=== PATIENT | female | born 1980 | race African-American/Black ===

== ENCOUNTER 2016-08-13 20:15 | Emergency (ER) | payer OTHER ==
[~2016-08-13] VITALS: Ht 157.5 cm; Wt 69.1 kg
[~2016-08-13 20:15] MED LIST: ADVAIR 500/501 DISK; ADVAIR 500/501 DISK IH; ALBUTEROL2.5 MG/3 M; ALBUTEROL2.5 MG/3 M IH; ALPRAZOLAM0.25 M2 PO; ALPRAZOLAM0.5 MG PO; ALPRAZOLAM1 MG PO; ALPRAZOLAM2 MG PO; BACTRIM,SEPT1 TABLET PO; BENADRYL50 MG PO; BENTYL10 MG PO; BENTYL20 MG PO; BUSPAR10 MG PO; CLEOCIN300 MG PO; Cipro PO; DESYREL300 MG PO; DOXEPIN HCL100 MG PO; DULERA 100 MCG/13 GM IH; EPIPEN ADU0.3 MG/0.3 IM; ERGOCALCIF50000 UNIT PO; FLEXERIL10 MG PO; FUROSEMIDE40 MG; GUMMI BEAR MUL1 EACH PO; HYDROCODON-ACE1 EAC7 PO; IBUPROFEN800 MG PO; INCRUSE ELLI62.5 MCG IH; KEFLEX500 MG PO; LISINOPRIL-HCT1 EAC3 PO; LISINOPRIL20 MG PO; LORTAB 5-325 M1 EACH PO; MACROBID100 MG PO; MORPHINE SULFA100 M2; MORPHINE SULFAT15 MG PO; MS CONTIN100 MG PO; MS Contin PO; MUCINEX DM ER1 EACH PO; NAPROSYN500 MG PO; NAPROXEN500 MG PO; NEURONTIN300 MG PO; NORCO 5/3251 TABLET PO; NUCYNTA100 MG PO; NUCYNTA75 MG; OMEPRAZOLE20 MG PO; OXYCODONE HCL30 MG; PEPCID20 MG PO; PERCOCET 10-321 EACH PO; PERCOCET 5/31 TABLET PO; PHENERGAN12.5 M1 PO; PREDNISONE TAPER; PREDNISONE10 MG PO; PREDNISONE20 MG PO; PREDNISONE50 MG PO; PRINIVIL10 MG PO; PROAIR HFA8.5 GM IH; PROMETHAZINE HC25 M1; PYRIDIUM100 MG PO; PYRIDIUM200 MG PO; Phenergan PO; Proventil,Ventolin H IH; ROBITUSSIN AC,T10 ML PO; ROXICODONE30 MG PO; SERTRALINE HCL50 MG PO; TESSALON200 MG PO; TIZANIDINE HCL4 MG; TYLENOL EXTRA500 MG PO; VALIUM10 MG PO; VENTOLIN HFA18 GM; VENTOLIN HFA18 GM IH; VENTOLIN17 GM IH; VICODIN 5-3001 EACH PO; VICODIN,LORT1 TABLET PO; VITAMIN D2000 UNI1 PO; WELLBUTRIN XL150 MG PO; WELLBUTRIN XL300 MG PO; XANAX2 MG PO; ZANTAC150 MG PO; ZESTRIL,PRINIVI10 M1 PO; ZITHROMAX Z-PA250 MG PO; ZITHROMAX250 MG PO; ZOFRAN4 MG PO; ZOFRAN8 MG PO
[2016-08-13 20:43] LABS: MEAN PLAT.VOLUME 12.2 uM^3 (9.5-12.4); PLATELET COUNT 240 K/uL (156-360)
[2016-08-13 20:50] LABS: HEMATOCRIT 41.3 % (36.0-46.0); MCH 34.2 PG (29.0-34.0); MCHC 35.4 G/DL (30.0-36.0); MCV 96.7 FL (83-99); RBC DIS.WIDTH-CV 13.9 % (11.8-14.6); RBC DIS.WIDTH-SD 46.8 % (39-53); RED BLOOD COUNT 4.27 M/uL (3.80-5.20); WHITE BLOOD COUNT 8.4 K/uL (4.1-10.2)
[2016-08-13 20:51] LABS: CHLORIDE 103 mEq/L (99-109); POTASSIUM 3.2 mEq/L (3.7-5.4); SODIUM 139 mEq/L (136-147)
[2016-08-13 20:53] LABS: GLUCOSE 94 mg/dL (70-99)
[2016-08-13 20:55] LABS: ANION GAP 10 MEQ/L (2-14); TOTAL BILIRUBIN 0.9 mg/dL (0.0-1.0)
[2016-08-13 20:57] LABS: ALKALINE PHOSPHATASE 90 IU/L (3-129); GFR ESTIMATE (CALCULATED) > 59 mL/min/
[2016-08-13 20:58] LABS: UREA NITROGEN (BUN) 4 mg/dL (9-23)
[2016-08-13 21:00] LABS: LIPASE 41 U/L (1.0-51.0)
[2016-08-13 21:00] LABS: ADD MIUA? YES; BILIRUBIN SMALL; BLOOD NEGATIVE; COLOR ORANGE ((YELLOW)); GLUCOSE (STRIP) NEGATIVE; KETONES TRACE; LEUKOCYTES SMALL; NITRITE NEGATIVE; PROTEIN (STRIP) 30; SPECIFIC GRAVITY 1.036 (1.000-1.030)
[2016-08-13 21:06] LABS: QUANTITATIVE HCG < 4.0 MIU/ML
[2016-08-13 21:32] LABS: BACTERIA 2+ /HPF; CASTS NONE SEEN /LPF; CRYSTALS NONE SEEN; EPITHELIAL CELLS 4+ /HPF; MUCUS 1+ /LPF; RED BLOOD CELLS 0-5 /HPF (0-5); UCUL ADDED? YES
[2016-08-13] MEDS ORDERED: CIPRO500 MG PO (23:05)
[2016-08-14 00:27] VITALS: BP 175/91
[2016-08-15 12:56] LABS: CHLAMYDIA TRACHOMATIS NEGATIVE; NEISSERIA GONORRHOEAE NEGATIVE
== END 2016-08-14 00:31 | disposition home or self-care (01) ==
LOC: EME 20:15
DX: N39.0 Urinary tract infection, site not specified (principal); R10.31 Right lower quadrant pain; E11.9 Type 2 diabetes mellitus without complications; M79.7 Fibromyalgia; I10 Essential (primary) hypertension; K21.9 Gastro-esophageal reflux disease without esophagitis; D86.9 Sarcoidosis, unspecified; F17.200 Nicotine dependence, unspecified, uncomplicated
CPT/HCPCS: 74176; 80053; 81003; 83690; 84702; 85027; 87077; 87086; 87186; 87491; 87591; 99281; 99285; J1885

== ENCOUNTER 2016-09-02 10:19 | Inpatient (IN) | payer OTHER ==
[~2016-09-02] VITALS: Ht 157.5 cm; Wt 67.9 kg
[~2016-09-02 10:19] MED LIST changes: +CIPRO500 MG PO
[2016-09-02 11:44] LABS: EOSINOPHIL (%) 1.5 % (0-5); EOSINOPHIL COUNT 0.1 K/uL (0-0.3); HEMATOCRIT 43.8 % (36.0-46.0); IMMATURE GRANULOCYTE (%) 0.1 % (0.0-0.7); IMMATURE GRANULOCYTE COUNT 0.1 K/uL; MCH 35.2 PG (29.0-34.0); MCHC 35.6 G/DL (30.0-36.0); MCV 98.9 FL (83-99); MEAN PLAT.VOLUME 10.4 uM^3 (9.5-12.4); MONOCYTE (%) 10.7 % (3-12); MONOCYTE COUNT 0.7 K/uL (0-0.8); NEUTROPHIL (%) 58.2 % (45-76); PLATELET COUNT 300 K/uL (156-360); RBC DIS.WIDTH-CV 15.3 % (11.8-14.6); RBC DIS.WIDTH-SD 53.4 % (39-53); RED BLOOD COUNT 4.43 M/uL (3.80-5.20); WHITE BLOOD COUNT 6.8 K/uL (4.1-10.2)
[2016-09-02 11:54] LABS: CHLORIDE 101 mEq/L (99-109); GLUCOSE 95 mg/dL (70-99); POTASSIUM 3.1 mEq/L (3.7-5.4); SODIUM 137 mEq/L (136-147)
[2016-09-02 11:55] LABS: D-DIMER ELISA 1.75 mg/L FEU (< 0.57)
[2016-09-02 11:56] LABS: ANION GAP 11 MEQ/L (2-14); TOTAL BILIRUBIN 2.3 mg/dL (0.0-1.0)
[2016-09-02 11:58] LABS: ALKALINE PHOSPHATASE 174 IU/L (3-129); GFR ESTIMATE (CALCULATED) > 59 mL/min/
[2016-09-02 11:59] LABS: UREA NITROGEN (BUN) 4 mg/dL (9-23)
[2016-09-02 12:07] LABS: TROP-I INTERPRETATION NEGATIVE; TROPONIN-I < 0.01 ng/mL (0.0-0.30)
[2016-09-02 12:13] LABS: QUANTITATIVE HCG < 4.0 MIU/ML
[2016-09-02 15:39] LABS: LIPASE 622 U/L (1.0-51.0)
[2016-09-02 16:06] LABS: TROP-I INTERPRETATION NEGATIVE; TROPONIN-I < 0.01 ng/mL (0.0-0.30)
[2016-09-02] MEDS ORDERED: QUETIAPINE FUMA50 MG PO (16:44)
[2016-09-02] MEDS ORDERED: LISINOPRIL20 MG PO (16:45)
[2016-09-02 18:20] LABS: SERUM ETHYL ALCOHOL < 10 mg/dL
[2016-09-02 22:25] VITALS: BP 158/98
[2016-09-03 07:26] LABS: HEMATOCRIT 43.4 % (36.0-46.0); MCH 33.6 PG (29.0-34.0); MCHC 32.9 G/DL (30.0-36.0); MCV 101.9 FL (83-99); MEAN PLAT.VOLUME 10.6 uM^3 (9.5-12.4); PLATELET COUNT 317 K/uL (156-360); RBC DIS.WIDTH-CV 16.4 % (11.8-14.6); RBC DIS.WIDTH-SD 60.1 % (39-53); RED BLOOD COUNT 4.26 M/uL (3.80-5.20); WHITE BLOOD COUNT 7.6 K/uL (4.1-10.2)
[2016-09-03 07:39] LABS: EOSINOPHIL COUNT 0.3 K/uL (0-0.3); IMMATURE GRANULOCYTE (%) 0.1 % (0.0-0.7); LYMPHOCYTE COUNT 1.8 K/uL (1.0-2.8); MONOCYTE (%) 12.1 % (3-12); MONOCYTE COUNT 0.9 K/uL (0-0.8); NEUTROPHIL (%) 59.6 % (45-76); NEUTROPHIL COUNT 4.5 K/uL (1.8-6.4)
[2016-09-03 07:59] LABS: ALKALINE PHOSPHATASE 138 IU/L (3-129); ANION GAP 9 MEQ/L (2-14); CHLORIDE 102 MEQ/L (99-109); GFR ESTIMATE (CALCULATED) > 59 mL/min/; GLUCOSE 84 mg/dL (70-99); LIPASE 924 U/L (1.0-51.0); POTASSIUM 3.5 MEQ/L (3.7-5.4); SAMPLE HEMOLYSIS CHECK 0; SAMPLE ICTERIC CHECK 0; SAMPLE LIPEMIA CHECK 0; SODIUM 137 MEQ/L (136-147); UREA NITROGEN (BUN) 5 mg/dL (9-23)
[2016-09-03 08:44] VITALS: BP 158/107
[2016-09-03 11:00] VITALS: BP 149/101
[2016-09-03 18:09] VITALS: BP 158/107
[2016-09-03 22:45] VITALS: BP 125/68
[2016-09-04 07:18] LABS: EOSINOPHIL (%) 6.3 % (0-5); EOSINOPHIL COUNT 0.6 K/uL (0-0.3); IMMATURE GRANULOCYTE (%) 0.2 % (0.0-0.7); LYMPHOCYTE COUNT 2.2 K/uL (1.0-2.8); MCH 36.2 PG (29.0-34.0); MCHC 35.9 G/DL (30.0-36.0); MCV 100.8 FL (83-99); MEAN PLAT.VOLUME 11.1 uM^3 (9.5-12.4); MONOCYTE (%) 14.6 % (3-12); MONOCYTE COUNT 1.3 K/uL (0-0.8); NEUTROPHIL (%) 53.1 % (45-76); NEUTROPHIL COUNT 4.6 K/uL (1.8-6.4); PLATELET COUNT 297 K/uL (156-360); RBC DIS.WIDTH-CV 15.8 % (11.8-14.6); RED BLOOD COUNT 3.87 M/uL (3.80-5.20); WHITE BLOOD COUNT 8.7 K/uL (4.1-10.2)
[2016-09-04 07:20] VITALS: BP 130/90
[2016-09-04 07:49] LABS: ALKALINE PHOSPHATASE 131 IU/L (3-129); ANION GAP 11 MEQ/L (2-14); CHLORIDE 101 MEQ/L (99-109); GFR ESTIMATE (CALCULATED) > 59 mL/min/; GLUCOSE 63 mg/dL (70-99); LIPASE 420 U/L (1.0-51.0); POTASSIUM 3.5 MEQ/L (3.7-5.4); SAMPLE HEMOLYSIS CHECK 0; SAMPLE ICTERIC CHECK 0; SAMPLE LIPEMIA CHECK 0; SODIUM 136 MEQ/L (136-147); TOTAL BILIRUBIN 1.6 MG/DL (0.0-1.0); UREA NITROGEN (BUN) 6 mg/dL (9-23)
[2016-09-04 10:40] VITALS: BP 144/84
[2016-09-04 16:16] VITALS: BP 139/82
[2016-09-04 23:35] VITALS: BP 108/65
[2016-09-05 06:10] LABS: MCH 34.1 PG (29.0-34.0); MCHC 33.2 G/DL (30.0-36.0); MCV 102.7 FL (83-99); MEAN PLAT.VOLUME 11.2 uM^3 (9.5-12.4); PLATELET COUNT 291 K/uL (156-360); RBC DIS.WIDTH-SD 59.2 % (39-53); WHITE BLOOD COUNT 7.5 K/uL (4.1-10.2)
[2016-09-05 06:38] LABS: EOSINOPHIL (%) 8.4 % (0-5); EOSINOPHIL COUNT 0.6 K/uL (0-0.3); IMMATURE GRANULOCYTE (%) 0.3 % (0.0-0.7); LYMPHOCYTE COUNT 2.2 K/uL (1.0-2.8); MONOCYTE (%) 16.2 % (3-12); MONOCYTE COUNT 1.2 K/uL (0-0.8); NEUTROPHIL (%) 44.9 % (45-76); NEUTROPHIL COUNT 3.4 K/uL (1.8-6.4)
[2016-09-05 06:50] VITALS: BP 122/71
[2016-09-05 06:52] LABS: ALKALINE PHOSPHATASE 109 IU/L (3-129); ANION GAP 12 MEQ/L (2-14); CHLORIDE 102 MEQ/L (99-109); GFR ESTIMATE (CALCULATED) > 59 mL/min/; GLUCOSE 62 mg/dL (70-99); LIPASE 225 U/L (1.0-51.0); POTASSIUM 3.7 MEQ/L (3.7-5.4); SAMPLE HEMOLYSIS CHECK 1; SAMPLE ICTERIC CHECK 0; SAMPLE LIPEMIA CHECK 0; SODIUM 136 MEQ/L (136-147); UREA NITROGEN (BUN) 4 mg/dL (9-23)
[2016-09-05 10:35] VITALS: BP 120/71
[2016-09-05 16:26] VITALS: BP 125/71
[2016-09-05 23:56] VITALS: BP 118/70
[2016-09-06 06:20] LABS: EOSINOPHIL (%) 7.8 % (0-5); EOSINOPHIL COUNT 0.6 K/uL (0-0.3); HEMATOCRIT 37.6 % (36.0-46.0); IMMATURE GRANULOCYTE (%) 0.3 % (0.0-0.7); LYMPHOCYTE COUNT 2.3 K/uL (1.0-2.8); MCH 34.1 PG (29.0-34.0); MCHC 33.5 G/DL (30.0-36.0); MCV 101.9 FL (83-99); MEAN PLAT.VOLUME 10.5 uM^3 (9.5-12.4); MONOCYTE (%) 15.8 % (3-12); MONOCYTE COUNT 1.2 K/uL (0-0.8); NEUTROPHIL (%) 44.9 % (45-76); NEUTROPHIL COUNT 3.3 K/uL (1.8-6.4); PLATELET COUNT 305 K/uL (156-360); RBC DIS.WIDTH-CV 15.7 % (11.8-14.6); RBC DIS.WIDTH-SD 57.8 % (39-53); RED BLOOD COUNT 3.69 M/uL (3.80-5.20); WHITE BLOOD COUNT 7.3 K/uL (4.1-10.2)
[2016-09-06 06:47] LABS: ALKALINE PHOSPHATASE 102 IU/L (3-129); ANION GAP 10 MEQ/L (2-14); CHLORIDE 105 MEQ/L (99-109); GFR ESTIMATE (CALCULATED) > 59 mL/min/; LIPASE 180 U/L (1.0-51.0); MAGNESIUM 1.6 mg/dl (1.3-2.7); POTASSIUM 3.5 MEQ/L (3.7-5.4); SAMPLE HEMOLYSIS CHECK 0; SAMPLE ICTERIC CHECK 0; SAMPLE LIPEMIA CHECK 0; SODIUM 136 MEQ/L (136-147); UREA NITROGEN (BUN) 4 mg/dL (9-23)
[2016-09-06 06:49] LABS: GLUCOSE 90 mg/dL (70-99); TOTAL BILIRUBIN 0.7 MG/DL (0.0-1.0)
[2016-09-06 07:02] VITALS: BP 120/70
[2016-09-06 08:42] VITALS: BP 125/80
[2016-09-06 16:59] VITALS: BP 136/69
[2016-09-06 23:29] VITALS: BP 118/69
[2016-09-07 08:01] VITALS: BP 122/77
[2016-09-07 11:50] LABS: ANION GAP 8 MEQ/L (2-14); CHLORIDE 104 MEQ/L (99-109); POTASSIUM 3.3 MEQ/L (3.7-5.4); SAMPLE HEMOLYSIS CHECK 0; SAMPLE ICTERIC CHECK 0; SAMPLE LIPEMIA CHECK 0; SODIUM 136 MEQ/L (136-147)
[2016-09-07 11:58] LABS: GFR ESTIMATE (CALCULATED) > 59 mL/min/; GLUCOSE 97 mg/dL (70-99); LIPASE 179 U/L (1.0-51.0); UREA NITROGEN (BUN) 3 mg/dL (9-23)
[2016-09-07 16:04] VITALS: BP 136/82
[2016-09-07 23:50] VITALS: BP 117/77
[2016-09-08 09:03] LABS: ANION GAP 10 MEQ/L (2-14); CHLORIDE 106 MEQ/L (99-109); GFR ESTIMATE (CALCULATED) > 59 mL/min/; GLUCOSE 94 mg/dL (70-99); LIPASE 207 U/L (1.0-51.0); POTASSIUM 3.8 MEQ/L (3.7-5.4); SAMPLE HEMOLYSIS CHECK 0; SAMPLE ICTERIC CHECK 0; SAMPLE LIPEMIA CHECK 0; SODIUM 141 MEQ/L (136-147); UREA NITROGEN (BUN) 6 mg/dL (9-23)
[2016-09-08 09:21] VITALS: BP 132/77
[2016-09-08] MEDS ORDERED: VALSARTAN160 MG PO (13:40)
[2016-09-08] MEDS ORDERED: DOCUSATE SODIU100 MG PO (13:41)
[2016-09-08] MEDS ORDERED: K-DUR20 MEQ PO (13:41)
[2016-09-08] MEDS ORDERED: MIRALAX17 GM PO (13:42)
== END 2016-09-08 14:18 | disposition home or self-care (01) | DRG 439 ==
LOC: EME 10:19 → EDOF 16:38 → 5EAST 16:38
PROVIDERS: Emergency Medicine; Family Medicine; Family Medicine Sports Medicine; Internal Medicine Gastroenterology
DX: K85.90 Acute pancreatitis without necrosis or infection, unspecified (principal); J45.41 Moderate persistent asthma with (acute) exacerbation; I10 Essential (primary) hypertension; E87.6 Hypokalemia; D86.9 Sarcoidosis, unspecified; M79.7 Fibromyalgia; F17.210 Nicotine dependence, cigarettes, uncomplicated; F41.9 Anxiety disorder, unspecified; K21.9 Gastro-esophageal reflux disease without esophagitis; J44.9 Chronic obstructive pulmonary disease, unspecified; Z90.49 Acquired absence of other specified parts of digestive tract; K59.00 Constipation, unspecified
CPT/HCPCS: 71010; 71275; 74177; 74183; 80048; 80053; 83690; 83735; 84484; 84702; 85025; 85027; 85379; 93005; 94640; 94640 76; 99202; 99281; 99285; C9113; G0480; J0360; J0780; J1170; J1650; J2270; J2405; J3480; J7050; J7644

== ENCOUNTER 2016-10-17 17:21 | Inpatient (IN) | payer OTHER ==
[~2016-10-17] VITALS: Ht 157.5 cm; Wt 73.3 kg
[~2016-10-17 17:21] MED LIST changes: +DOCUSATE SODIU100 MG PO; +K-DUR20 MEQ PO; +MIRALAX17 GM PO; +QUETIAPINE FUMA50 MG PO; +VALSARTAN160 MG PO
[2016-10-17 18:16] LABS: HEMATOCRIT 40.7 % (36.0-46.0); MCH 34.9 PG (29.0-34.0); MCHC 35.4 G/DL (30.0-36.0); MCV 98.5 FL (83-99); MEAN PLAT.VOLUME 9.9 uM^3 (9.5-12.4); PLATELET COUNT 439 K/uL (156-360); RBC DIS.WIDTH-CV 15.3 % (11.8-14.6); RBC DIS.WIDTH-SD 54.9 % (39-53); RED BLOOD COUNT 4.13 M/uL (3.80-5.20); WHITE BLOOD COUNT 17.2 K/uL (4.1-10.2)
[2016-10-17 18:23] LABS: CHLORIDE 100 mEq/L (99-109); POTASSIUM 2.8 mEq/L (3.7-5.4); SODIUM 136 mEq/L (136-147)
[2016-10-17 18:24] LABS: GLUCOSE 89 mg/dL (70-99)
[2016-10-17 18:26] LABS: ANION GAP 11 MEQ/L (2-14)
[2016-10-17 18:28] LABS: GFR ESTIMATE (CALCULATED) > 59 mL/min/
[2016-10-17 18:29] LABS: UREA NITROGEN (BUN) 8 mg/dL (9-23)
[2016-10-17 18:38] LABS: TROP-I INTERPRETATION NEGATIVE; TROPONIN-I < 0.01 ng/mL (0.0-0.30)
[2016-10-17 18:52] LABS: TOTAL BILIRUBIN 0.7 mg/dL (0.0-1.0)
[2016-10-17 18:53] LABS: ALKALINE PHOSPHATASE 101 IU/L (3-129)
[2016-10-17 18:55] LABS: DIRECT BILIRUBIN 0.3 mg/dL (0.0-0.3)
[2016-10-17 19:30] LABS: LIPASE 947 U/L (1.0-51.0)
[2016-10-17] MEDS ORDERED: AMLODIPINE BESYL5 MG PO (22:28)
[2016-10-17] MEDS ORDERED: INCRUSE ELLI62.5 MCG IH (22:28)
[2016-10-17] MEDS ORDERED: XANAX1 MG PO (22:28)
[2016-10-17] MEDS ORDERED: EPIPEN ADU0.3 MG/0.3 IM (22:29)
[2016-10-17] MEDS ORDERED: SEROQUEL100 MG PO (22:29)
[2016-10-17 23:00] LABS: EOSINOPHIL (%) 1.4 % (0-5); EOSINOPHIL COUNT 0.2 K/uL (0-0.3); IMMATURE GRANULOCYTE (%) 0.5 % (0.0-0.7); IMMATURE GRANULOCYTE COUNT 0.1 K/uL; INSTRUMENT ABS NEUTROPHIL CT 10.9 K/uL; LYMPHOCYTE COUNT 4.3 K/uL (1.0-2.8); MONOCYTE COUNT 1.2 K/uL (0-0.8); NEUTROPHIL (%) 65.4 % (45-76); NEUTROPHIL COUNT 10.9 K/uL (1.8-6.4)
[2016-10-18] VITALS (8 sets, daily range): BP systolic 152–220; BP diastolic 87–119
[2016-10-18 02:29] LABS: LACTATE DEHYDROGENASE 486 IU/L (20-246)
[2016-10-18 06:49] LABS: EOSINOPHIL (%) 3.4 % (0-5); EOSINOPHIL COUNT 0.5 K/uL (0-0.3); HEMATOCRIT 38.5 % (36.0-46.0); IMMATURE GRANULOCYTE (%) 0.5 % (0.0-0.7); IMMATURE GRANULOCYTE COUNT 0.1 K/uL; INSTRUMENT ABS NEUTROPHIL CT 10.1 K/uL; LYMPHOCYTE COUNT 3.4 K/uL (1.0-2.8); MCH 34.5 PG (29.0-34.0); MCHC 34.8 G/DL (30.0-36.0); MCV 99.2 FL (83-99); MEAN PLAT.VOLUME 10.8 uM^3 (9.5-12.4); MONOCYTE (%) 6.5 % (3-12); NEUTROPHIL (%) 66.8 % (45-76); NEUTROPHIL COUNT 10.1 K/uL (1.8-6.4); PLATELET COUNT 361 K/uL (156-360); RBC DIS.WIDTH-CV 15.8 % (11.8-14.6); RBC DIS.WIDTH-SD 57.1 % (39-53); RED BLOOD COUNT 3.88 M/uL (3.80-5.20); WHITE BLOOD COUNT 15.2 K/uL (4.1-10.2)
[2016-10-18 07:17] LABS: ALKALINE PHOSPHATASE 92 IU/L (3-129); ANION GAP 11 MEQ/L (2-14); C-REACTIVE PROTEIN 68.5 MG/L (0-10); CHLORIDE 101 MEQ/L (99-109); GFR ESTIMATE (CALCULATED) > 59 mL/min/; GLUCOSE 83 mg/dL (70-99); SAMPLE HEMOLYSIS CHECK 0; SAMPLE ICTERIC CHECK 0; SAMPLE LIPEMIA CHECK 0; SODIUM 135 MEQ/L (136-147); TRIGLYCERIDES 149 MG/DL (Normal: <150); UREA NITROGEN (BUN) 8 mg/dL (9-23)
[2016-10-18 07:19] LABS: POTASSIUM 3.5 MEQ/L (3.7-5.4)
[2016-10-18 08:11] LABS: LIPASE 785 U/L (1.0-51.0)
[2016-10-19] VITALS (7 sets, daily range): BP systolic 121–212; BP diastolic 82–119
[2016-10-19 06:48] LABS: EOSINOPHIL (%) 7.1 % (0-5); EOSINOPHIL COUNT 1.2 K/uL (0-0.3); HEMATOCRIT 37.2 % (36.0-46.0); IMMATURE GRANULOCYTE (%) 0.4 % (0.0-0.7); IMMATURE GRANULOCYTE COUNT 0.1 K/uL; INSTRUMENT ABS NEUTROPHIL CT 10.2 K/uL; LYMPHOCYTE COUNT 3.3 K/uL (1.0-2.8); MCH 34.6 PG (29.0-34.0); MCHC 34.9 G/DL (30.0-36.0); MCV 98.9 FL (83-99); MEAN PLAT.VOLUME 10.3 uM^3 (9.5-12.4); MONOCYTE (%) 9.4 % (3-12); MONOCYTE COUNT 1.5 K/uL (0-0.8); NEUTROPHIL (%) 62.6 % (45-76); NEUTROPHIL COUNT 10.2 K/uL (1.8-6.4); PLATELET COUNT 348 K/uL (156-360); RBC DIS.WIDTH-CV 15.8 % (11.8-14.6); RBC DIS.WIDTH-SD 57.3 % (39-53); RED BLOOD COUNT 3.76 M/uL (3.80-5.20); WHITE BLOOD COUNT 16.2 K/uL (4.1-10.2)
[2016-10-19 07:12] LABS: ANION GAP 11 MEQ/L (2-14); CHLORIDE 96 MEQ/L (99-109); GFR ESTIMATE (CALCULATED) > 59 mL/min/; GLUCOSE 70 mg/dL (70-99); LIPASE 369 U/L (1.0-51.0); POTASSIUM 3.7 MEQ/L (3.7-5.4); SAMPLE HEMOLYSIS CHECK 0; SAMPLE ICTERIC CHECK 0; SAMPLE LIPEMIA CHECK 0; SODIUM 135 MEQ/L (136-147); UREA NITROGEN (BUN) 4 mg/dL (9-23)
[2016-10-20] VITALS (7 sets, daily range): BP systolic 120–150; BP diastolic 65–93
[2016-10-20 07:52] LABS: EOSINOPHIL (%) 8.4 % (0-5); EOSINOPHIL COUNT 0.8 K/uL (0-0.3); IMMATURE GRANULOCYTE (%) 0.4 % (0.0-0.7); INSTRUMENT ABS NEUTROPHIL CT 4.3 K/uL; LYMPHOCYTE COUNT 2.9 K/uL (1.0-2.8); MCH 34.9 PG (29.0-34.0); MCV 99.7 FL (83-99); MEAN PLAT.VOLUME 9.8 uM^3 (9.5-12.4); MONOCYTE (%) 12.2 % (3-12); MONOCYTE COUNT 1.1 K/uL (0-0.8); NEUTROPHIL (%) 47.4 % (45-76); NEUTROPHIL COUNT 4.3 K/uL (1.8-6.4); PLATELET COUNT 314 K/uL (156-360); RBC DIS.WIDTH-SD 59.1 % (39-53); RED BLOOD COUNT 3.21 M/uL (3.80-5.20)
[2016-10-20 07:55] LABS: WHITE BLOOD COUNT 9.2 K/uL (4.1-10.2)
[2016-10-20 07:59] LABS: ANION GAP 7 MEQ/L (2-14); CHLORIDE 98 MEQ/L (99-109); GFR ESTIMATE (CALCULATED) > 59 mL/min/; GLUCOSE 98 mg/dL (70-99); POTASSIUM 3.3 MEQ/L (3.7-5.4); SAMPLE HEMOLYSIS CHECK 0; SAMPLE ICTERIC CHECK 0; SAMPLE LIPEMIA CHECK 0; SODIUM 137 MEQ/L (136-147); UREA NITROGEN (BUN) 3 mg/dL (9-23)
[2016-10-21] VITALS (9 sets, daily range): BP systolic 115–176; BP diastolic 64–102
[2016-10-21 09:16] LABS: EOSINOPHIL (%) 7.4 % (0-5); EOSINOPHIL COUNT 0.5 K/uL (0-0.3); HEMATOCRIT 32.8 % (36.0-46.0); IMMATURE GRANULOCYTE (%) 0.6 % (0.0-0.7); INSTRUMENT ABS NEUTROPHIL CT 3.2 K/uL; LYMPHOCYTE COUNT 2.4 K/uL (1.0-2.8); MCH 34.3 PG (29.0-34.0); MCHC 33.8 G/DL (30.0-36.0); MCV 101.2 FL (83-99); MONOCYTE (%) 14.2 % (3-12); NEUTROPHIL (%) 44.4 % (45-76); NEUTROPHIL COUNT 3.2 K/uL (1.8-6.4); PLATELET COUNT 321 K/uL (156-360); RBC DIS.WIDTH-CV 16.3 % (11.8-14.6); RBC DIS.WIDTH-SD 60.5 % (39-53); RED BLOOD COUNT 3.24 M/uL (3.80-5.20); WHITE BLOOD COUNT 7.1 K/uL (4.1-10.2)
[2016-10-21 09:37] LABS: ANION GAP 7 MEQ/L (2-14); CHLORIDE 99 MEQ/L (99-109); GFR ESTIMATE (CALCULATED) > 59 mL/min/; GLUCOSE 78 mg/dL (70-99); POTASSIUM 3.4 MEQ/L (3.7-5.4); SAMPLE HEMOLYSIS CHECK 0; SAMPLE ICTERIC CHECK 0; SAMPLE LIPEMIA CHECK 0; SODIUM 138 MEQ/L (136-147); UREA NITROGEN (BUN) 4 mg/dL (9-23)
[2016-10-21 12:10] LABS: QUANTITATIVE HCG < 4.0 MIU/ML
[2016-10-22 03:38] VITALS: BP 147/87
[2016-10-22 07:15] VITALS: BP 146/90
[2016-10-22 09:53] LABS: EOSINOPHIL (%) 5.3 % (0-5); EOSINOPHIL COUNT 0.5 K/uL (0-0.3); HEMATOCRIT 34.6 % (36.0-46.0); IMMATURE GRANULOCYTE (%) 0.2 % (0.0-0.7); INSTRUMENT ABS NEUTROPHIL CT 4.5 K/uL; LYMPHOCYTE COUNT 2.3 K/uL (1.0-2.8); MCH 35.1 PG (29.0-34.0); MCHC 34.7 G/DL (30.0-36.0); MCV 101.2 FL (83-99); MEAN PLAT.VOLUME 10.2 uM^3 (9.5-12.4); MONOCYTE (%) 13.8 % (3-12); MONOCYTE COUNT 1.2 K/uL (0-0.8); NEUTROPHIL (%) 52.9 % (45-76); NEUTROPHIL COUNT 4.5 K/uL (1.8-6.4); PLATELET COUNT 337 K/uL (156-360); RBC DIS.WIDTH-CV 16.7 % (11.8-14.6); RBC DIS.WIDTH-SD 62.1 % (39-53); RED BLOOD COUNT 3.42 M/uL (3.80-5.20); WHITE BLOOD COUNT 8.4 K/uL (4.1-10.2)
[2016-10-22 10:14] LABS: ANION GAP 10 MEQ/L (2-14); CHLORIDE 98 MEQ/L (99-109); GFR ESTIMATE (CALCULATED) > 59 mL/min/; POTASSIUM 3.5 MEQ/L (3.7-5.4); SAMPLE HEMOLYSIS CHECK 0; SAMPLE ICTERIC CHECK 0; SAMPLE LIPEMIA CHECK 0; SODIUM 138 MEQ/L (136-147); UREA NITROGEN (BUN) 4 mg/dL (9-23)
[2016-10-22 10:20] LABS: GLUCOSE 120 mg/dL (70-99)
[2016-10-22 11:25] VITALS: BP 140/81
[2016-10-22 15:50] VITALS: BP 139/91
[2016-10-22] MEDS ORDERED: DILAUDID2 MG PO (17:32)
[2016-10-22 20:31] VITALS: BP 167/78
[2016-10-22] MEDS ORDERED: METOPROLOL SUCC25 MG PO (21:03)
[2016-10-22] MEDS ORDERED: VALSARTAN160 MG PO (21:05)
[2016-10-22] MEDS ORDERED: OMEPRAZOLE40 M1 PO (21:13)
[2016-10-22] MEDS ORDERED: CATAPRES-TTS 21 EACH TD (21:29)
[2016-10-27 17:39] LABS: IgG Subclass 4 (QD) 49.1
== END 2016-10-22 22:00 | disposition home or self-care (01) | DRG 425 ==
LOC: EME 17:21 → 2EAST 21:59 → EDOF 21:59 → 2EAST 10-18 02:24
PROVIDERS: Family Medicine; Family Medicine Sports Medicine; Internal Medicine Gastroenterology
DX: K85.90 Acute pancreatitis without necrosis or infection, unspecified (principal); K86.1 Other chronic pancreatitis; R59.9 Enlarged lymph nodes, unspecified; I10 Essential (primary) hypertension; K20.9 Esophagitis, unspecified; F41.9 Anxiety disorder, unspecified; K21.9 Gastro-esophageal reflux disease without esophagitis; E78.5 Hyperlipidemia, unspecified; J45.909 Unspecified asthma, uncomplicated; F32.9 Major depressive disorder, single episode, unspecified; G89.29 Other chronic pain; M54.5 Low back pain; E87.6 Hypokalemia; F17.200 Nicotine dependence, unspecified, uncomplicated; Z88.2 Allergy status to sulfonamides; Z88.0 Allergy status to penicillin
CPT/HCPCS: 71020; 74177; 80048; 80053; 80076; 81003; 82787 90; 83615; 83690; 84478; 84484; 84702; 85007; 85025; 85027; 86038; 86140; 86301 90; 88173; 88305; 93005; 94640; 94640 76; 94799; 99202; 99281; 99285; C9113; J0360; J1170; J1650; J1885; J2250; J2270; J2405; J3010; J3480; J7030; J7120

== ENCOUNTER 2017-04-16 09:24 | Inpatient (IN) | payer OTHER ==
[~2017-04-16] VITALS: Ht 157.5 cm; Wt 71.0 kg
[~2017-04-16 09:24] MED LIST changes: +AMLODIPINE BESYL5 MG PO; +CATAPRES-TTS 21 EACH TD; +DILAUDID2 MG PO; +METOPROLOL SUCC25 MG PO; +OMEPRAZOLE40 M1 PO; +SEROQUEL100 MG PO; +XANAX1 MG PO
[2017-04-16 10:37] LABS: EOSINOPHIL (%) 0.8 % (0-5); EOSINOPHIL COUNT 0.1 K/uL (0-0.3); HEMATOCRIT 39.5 % (36.0-46.0); IMMATURE GRANULOCYTE (%) 0.4 % (0.0-0.7); INSTRUMENT ABS NEUTROPHIL CT 6.4 K/uL; LYMPHOCYTE COUNT 2.4 K/uL (1.0-2.8); MCH 36.2 PG (29.0-34.0); MCHC 35.4 G/DL (30.0-36.0); MCV 102.1 FL (83-99); MEAN PLAT.VOLUME 10.1 uM^3 (9.5-12.4); MONOCYTE (%) 6.6 % (3-12); MONOCYTE COUNT 0.6 K/uL (0-0.8); NEUTROPHIL (%) 66.9 % (45-76); NEUTROPHIL COUNT 6.4 K/uL (1.8-6.4); PLATELET COUNT 403 K/uL (156-360); RBC DIS.WIDTH-CV 14.2 % (11.8-14.6); RBC DIS.WIDTH-SD 53.1 % (39-53); RED BLOOD COUNT 3.87 M/uL (3.80-5.20); WHITE BLOOD COUNT 9.6 K/uL (4.1-10.2)
[2017-04-16 11:06] LABS: CHLORIDE 107 mEq/L (99-109); POTASSIUM 3.1 mEq/L (3.7-5.4); SODIUM 142 mEq/L (136-147)
[2017-04-16 11:09] LABS: GLUCOSE 90 mg/dL (70-99)
[2017-04-16 11:10] LABS: ANION GAP 11 MEQ/L (2-14); TOTAL BILIRUBIN 1.5 mg/dL (0.0-1.0)
[2017-04-16 11:12] LABS: ALKALINE PHOSPHATASE 102 IU/L (3-129); GFR ESTIMATE (CALCULATED) > 59 mL/min/
[2017-04-16 11:13] LABS: UREA NITROGEN (BUN) 5 mg/dL (9-23)
[2017-04-16 11:16] LABS: LIPASE 41 U/L (1.0-51.0)
[2017-04-16] MEDS ORDERED: COZAAR100 MG PO (12:24)
[2017-04-16] MEDS ORDERED: WELLBUTRIN XL150 MG PO (12:24)
[2017-04-16] MEDS ORDERED: LEXAPRO10 MG PO (12:25)
[2017-04-16] MEDS ORDERED: LYRICA150 MG PO (12:26)
[2017-04-16] MEDS ORDERED: MORPHINE SULFAT30 M2 PO (12:27)
[2017-04-16] MEDS ORDERED: TIZANIDINE HCL4 MG PO (12:29)
[2017-04-16] MEDS ORDERED: SEROQUEL50 MG PO (12:30)
[2017-04-16] MEDS ORDERED: OMEPRAZOLE40 M1 PO (12:30)
[2017-04-16] MEDS ORDERED: PROMETHAZINE HC25 M1 PO (12:31)
[2017-04-16] MEDS ORDERED: VOLTAREN 1% GE100 GM TP (12:32)
[2017-04-16] MEDS ORDERED: ENDOCET 10-3251 EACH PO (12:32)
[2017-04-16] MEDS ORDERED: DICLOFENAC POTA50 MG PO (12:32)
[2017-04-16 14:55] LABS: TROP-I INTERPRETATION NEGATIVE; TROPONIN-I < 0.01 ng/mL (0.0-0.30)
[2017-04-16 15:18] LABS: Estimated Average Glucose 82 mg/dL (70-123); HEMOGLOBIN A1c (GLYCOHEMOGLOB) 4.5 % HGB (Below 5.7)
[2017-04-16 15:32] VITALS: BP 136/88
[2017-04-16 19:06] VITALS: BP 100/52
[2017-04-16 20:43] LABS: TROP-I INTERPRETATION NEGATIVE; TROPONIN-I < 0.01 ng/mL (0.0-0.30)
[2017-04-16 23:55] VITALS: BP 92/50
[2017-04-17 03:04] VITALS: BP 87/48
[2017-04-17 04:17] LABS: TROP-I INTERPRETATION NEGATIVE; TROPONIN-I < 0.01 ng/mL (0.0-0.30)
[2017-04-17 07:59] VITALS: BP 86/50
[2017-04-17 09:06] LABS: HEMATOCRIT 32.6 % (36.0-46.0); MCH 36.3 PG (29.0-34.0); MEAN PLAT.VOLUME 10.2 uM^3 (9.5-12.4); PLATELET COUNT 333 K/uL (156-360); RBC DIS.WIDTH-CV 14.9 % (11.8-14.6); RBC DIS.WIDTH-SD 58.4 % (39-53); WHITE BLOOD COUNT 8.3 K/uL (4.1-10.2)
[2017-04-17 09:08] LABS: MCV 106.5 FL (83-99); RED BLOOD COUNT 3.06 M/uL (3.80-5.20)
[2017-04-17 09:25] LABS: ALKALINE PHOSPHATASE 70 IU/L (3-129); ANION GAP 8 MEQ/L (2-14); CHLORIDE 106 MEQ/L (99-109); GFR ESTIMATE (CALCULATED) > 59 mL/min/; GLUCOSE 89 mg/dL (70-99); LIPASE 227 U/L (1.0-51.0); POTASSIUM 3.2 MEQ/L (3.7-5.4); SAMPLE HEMOLYSIS CHECK 0; SAMPLE ICTERIC CHECK 0; SAMPLE LIPEMIA CHECK 0; SODIUM 140 MEQ/L (136-147); UREA NITROGEN (BUN) 11 mg/dL (9-23)
[2017-04-17 11:18] VITALS: BP 91/52
[2017-04-17 16:00] VITALS: BP 97/52
[2017-04-17 20:00] VITALS: BP 90/52
[2017-04-18 04:06] VITALS: BP 125/75
[2017-04-18 05:41] LABS: EOSINOPHIL (%) 2.3 % (0-5); EOSINOPHIL COUNT 0.3 K/uL (0-0.3); HEMATOCRIT 33.5 % (36.0-46.0); IMMATURE GRANULOCYTE (%) 0.4 % (0.0-0.7); IMMATURE GRANULOCYTE COUNT 0.1 K/uL; INSTRUMENT ABS NEUTROPHIL CT 8.7 K/uL; LYMPHOCYTE COUNT 2.4 K/uL (1.0-2.8); MCH 36.1 PG (29.0-34.0); MCHC 33.4 G/DL (30.0-36.0); MCV 108.1 FL (83-99); MEAN PLAT.VOLUME 10.9 uM^3 (9.5-12.4); MONOCYTE (%) 7.8 % (3-12); NEUTROPHIL (%) 70.3 % (45-76); NEUTROPHIL COUNT 8.7 K/uL (1.8-6.4); PLATELET COUNT 297 K/uL (156-360); RBC DIS.WIDTH-CV 14.8 % (11.8-14.6); WHITE BLOOD COUNT 12.4 K/uL (4.1-10.2)
[2017-04-18 06:11] LABS: ALKALINE PHOSPHATASE 68 IU/L (3-129); ANION GAP 9 MEQ/L (2-14); CHLORIDE 110 MEQ/L (99-109); GFR ESTIMATE (CALCULATED) > 59 mL/min/; GLUCOSE 85 mg/dL (70-99); LIPASE 554 U/L (1.0-51.0); POTASSIUM 3.8 MEQ/L (3.7-5.4); SAMPLE HEMOLYSIS CHECK 0; SAMPLE ICTERIC CHECK 0; SAMPLE LIPEMIA CHECK 0; SODIUM 142 MEQ/L (136-147); UREA NITROGEN (BUN) 13 mg/dL (9-23)
[2017-04-18 06:16] LABS: TOTAL BILIRUBIN 0.4 MG/DL (0.0-1.0)
[2017-04-18 07:31] VITALS: BP 117/79
[2017-04-18 10:55] VITALS: BP 127/81
[2017-04-18 11:54] VITALS: BP 136/87
[2017-04-18 16:46] VITALS: BP 140/76
[2017-04-18 20:00] VITALS: BP 114/68
[2017-04-19] VITALS: BP 111/60
[2017-04-19 04:00] VITALS: BP 108/65
[2017-04-19 05:55] LABS: MCH 36.2 PG (29.0-34.0); MCHC 33.3 G/DL (30.0-36.0); MCV 108.7 FL (83-99); MEAN PLAT.VOLUME 11.3 uM^3 (9.5-12.4); PLATELET COUNT 263 K/uL (156-360); RBC DIS.WIDTH-CV 14.8 % (11.8-14.6); RBC DIS.WIDTH-SD 58.6 % (39-53); RED BLOOD COUNT 2.76 M/uL (3.80-5.20); WHITE BLOOD COUNT 10.6 K/uL (4.1-10.2)
[2017-04-19 06:23] LABS: ALKALINE PHOSPHATASE 68 IU/L (3-129); ANION GAP 9 MEQ/L (2-14); CHLORIDE 111 MEQ/L (99-109); GFR ESTIMATE (CALCULATED) > 59 mL/min/; GLUCOSE 81 mg/dL (70-99); LIPASE 264 U/L (1.0-51.0); POTASSIUM 3.6 MEQ/L (3.7-5.4); SAMPLE HEMOLYSIS CHECK 0; SAMPLE ICTERIC CHECK 0; SAMPLE LIPEMIA CHECK 0; SODIUM 142 MEQ/L (136-147); TOTAL BILIRUBIN 0.5 MG/DL (0.0-1.0); UREA NITROGEN (BUN) 12 mg/dL (9-23)
[2017-04-19 07:34] VITALS: BP 105/66
[2017-04-19 12:00] VITALS: BP 114/68
[2017-04-19 16:00] VITALS: BP 124/81
[2017-04-19 20:00] VITALS: BP 121/87
[2017-04-20] VITALS (7 sets, daily range): BP systolic 117–145; BP diastolic 72–95
[2017-04-20 05:47] LABS: HEMATOCRIT 29.8 % (36.0-46.0); MCHC 33.2 G/DL (30.0-36.0); MCV 108.4 FL (83-99); RBC DIS.WIDTH-CV 14.6 % (11.8-14.6); RBC DIS.WIDTH-SD 58.4 % (39-53); RED BLOOD COUNT 2.75 M/uL (3.80-5.20); WHITE BLOOD COUNT 11.5 K/uL (4.1-10.2)
[2017-04-20 06:13] LABS: ALKALINE PHOSPHATASE 91 IU/L (3-129); ANION GAP 7 MEQ/L (2-14); CHLORIDE 112 MEQ/L (99-109); GFR ESTIMATE (CALCULATED) > 59 mL/min/; GLUCOSE 88 mg/dL (70-99); LIPASE 93 U/L (1.0-51.0); POTASSIUM 4.1 MEQ/L (3.7-5.4); SAMPLE HEMOLYSIS CHECK 0; SAMPLE ICTERIC CHECK 0; SAMPLE LIPEMIA CHECK 0; SODIUM 140 MEQ/L (136-147); TOTAL BILIRUBIN 0.5 MG/DL (0.0-1.0); UREA NITROGEN (BUN) 8 mg/dL (9-23)
[2017-04-20 06:22] LABS: MEAN PLAT.VOLUME 10.9 uM^3 (9.5-12.4); PLATELET COUNT 287 K/uL (156-360)
[2017-04-20 06:23] LABS: PLAT.SUFFICIENCY ADEQUATE
[2017-04-21 04:11] VITALS: BP 125/76
[2017-04-21 05:40] LABS: EOSINOPHIL (%) 5.1 % (0-5); EOSINOPHIL COUNT 0.4 K/uL (0-0.3); HEMATOCRIT 27.5 % (36.0-46.0); IMMATURE GRANULOCYTE (%) 0.3 % (0.0-0.7); INSTRUMENT ABS NEUTROPHIL CT 4.6 K/uL; MCH 37.8 PG (29.0-34.0); MCHC 34.9 G/DL (30.0-36.0); MCV 108.3 FL (83-99); MEAN PLAT.VOLUME 11.2 uM^3 (9.5-12.4); MONOCYTE (%) 11.5 % (3-12); MONOCYTE COUNT 0.9 K/uL (0-0.8); NEUTROPHIL COUNT 4.6 K/uL (1.8-6.4); PLATELET COUNT 293 K/uL (156-360); RBC DIS.WIDTH-CV 13.9 % (11.8-14.6); RED BLOOD COUNT 2.54 M/uL (3.80-5.20); WHITE BLOOD COUNT 7.9 K/uL (4.1-10.2)
[2017-04-21 06:08] LABS: ALKALINE PHOSPHATASE 85 IU/L (3-129); ANION GAP 8 MEQ/L (2-14); CHLORIDE 111 MEQ/L (99-109); GFR ESTIMATE (CALCULATED) > 59 mL/min/; GLUCOSE 87 mg/dL (70-99); LIPASE 45 U/L (1.0-51.0); POTASSIUM 3.8 MEQ/L (3.7-5.4); SAMPLE HEMOLYSIS CHECK 0; SAMPLE ICTERIC CHECK 0; SAMPLE LIPEMIA CHECK 0; SODIUM 140 MEQ/L (136-147); TOTAL BILIRUBIN 0.5 MG/DL (0.0-1.0); UREA NITROGEN (BUN) 3 mg/dL (9-23)
[2017-04-21 07:21] VITALS: BP 153/97
[2017-04-21 11:08] VITALS: BP 152/90
[2017-04-21 16:36] VITALS: BP 137/91
[2017-04-21 19:00] VITALS: BP 120/78
[2017-04-22] VITALS (7 sets, daily range): BP systolic 111–170; BP diastolic 69–99
[2017-04-22 05:53] LABS: EOSINOPHIL (%) 4.7 % (0-5); EOSINOPHIL COUNT 0.4 K/uL (0-0.3); HEMATOCRIT 27.8 % (36.0-46.0); IMMATURE GRANULOCYTE (%) 0.3 % (0.0-0.7); LYMPHOCYTE COUNT 2.3 K/uL (1.0-2.8); MCH 36.2 PG (29.0-34.0); MCHC 33.8 G/DL (30.0-36.0); MCV 106.9 FL (83-99); MEAN PLAT.VOLUME 11.8 uM^3 (9.5-12.4); MONOCYTE (%) 13.5 % (3-12); NEUTROPHIL (%) 51.5 % (45-76); PLATELET COUNT 272 K/uL (156-360); RBC DIS.WIDTH-CV 13.8 % (11.8-14.6); RBC DIS.WIDTH-SD 54.5 % (39-53); WHITE BLOOD COUNT 7.7 K/uL (4.1-10.2)
[2017-04-22 06:36] LABS: ALKALINE PHOSPHATASE 93 IU/L (3-129); ANION GAP 8 MEQ/L (2-14); CHLORIDE 110 MEQ/L (99-109); GFR ESTIMATE (CALCULATED) > 59 mL/min/; GLUCOSE 76 mg/dL (70-99); LIPASE 46 U/L (1.0-51.0); POTASSIUM 3.8 MEQ/L (3.7-5.4); SAMPLE HEMOLYSIS CHECK 0; SAMPLE ICTERIC CHECK 0; SAMPLE LIPEMIA CHECK 0; SODIUM 140 MEQ/L (136-147); UREA NITROGEN (BUN) 3 mg/dL (9-23)
[2017-04-22 06:37] LABS: TOTAL BILIRUBIN 0.2 MG/DL (0.0-1.0)
[2017-04-23 03:55] VITALS: BP 161/104
[2017-04-23 08:31] VITALS: BP 161/89
[2017-04-23] MEDS ORDERED: LEVOFLOXACIN500 MG PO (09:15)
[2017-04-23] MEDS ORDERED: APRESOLINE25 MG PO (09:19)
[2017-04-23 12:04] VITALS: BP 173/74
== END 2017-04-23 15:28 | disposition home or self-care (01) | DRG 304 ==
LOC: EME 09:24 → 5WEST 12:57 → EDOF 12:57 → ENRESERV 13:00 → CANRESERV 14:13 → ENRESERV 14:18 → 5WEST 15:22
PROVIDERS: Emergency Medicine; Hospitalist; Internal Medicine; Internal Medicine Gastroenterology
DX: I16.1 Hypertensive emergency (principal); K85.90 Acute pancreatitis without necrosis or infection, unspecified; J18.9 Pneumonia, unspecified organism; F17.200 Nicotine dependence, unspecified, uncomplicated; M79.7 Fibromyalgia; K86.1 Other chronic pancreatitis; K21.9 Gastro-esophageal reflux disease without esophagitis; F41.9 Anxiety disorder, unspecified; E11.9 Type 2 diabetes mellitus without complications; D86.9 Sarcoidosis, unspecified; E87.6 Hypokalemia; E78.5 Hyperlipidemia, unspecified; J45.909 Unspecified asthma, uncomplicated; G89.29 Other chronic pain; F31.9 Bipolar disorder, unspecified; M54.5 Low back pain; Z88.0 Allergy status to penicillin; Z86.73 Personal history of transient ischemic attack (TIA), and cerebral infarction without residual deficits; Z88.2 Allergy status to sulfonamides; Z91.09 Other allergy status, other than to drugs and biological substances
CPT/HCPCS: 74177; 80053; 83036; 83690; 84484; 85025; 85027; 90686; 93005; 94640; 94640 76; 94760; 99202; 99281; 99285; G0378; J0360; J1170; J1650; J2270; J2405; J3480; J7030; Q0169

== ENCOUNTER 2017-05-27 12:22 | Emergency (ER) | payer OTHER ==
[~2017-05-27] VITALS: Ht 157.5 cm; Wt 71.8 kg
[~2017-05-27 12:22] MED LIST changes: +APRESOLINE25 MG PO; +COZAAR100 MG PO; +DICLOFENAC POTA50 MG PO; +ENDOCET 10-3251 EACH PO; +LEVOFLOXACIN500 MG PO; +LEXAPRO10 MG PO; +LYRICA150 MG PO; +MORPHINE SULFAT30 M2 PO; +PROMETHAZINE HC25 M1 PO; +SEROQUEL50 MG PO; +TIZANIDINE HCL4 MG PO; +VOLTAREN 1% GE100 GM TP
[2017-05-27] MEDS ORDERED: LORTAB 10-3251 EACH PO (14:14)
[2017-05-27 14:33] VITALS: BP 144/101
== END 2017-05-27 14:34 | disposition home or self-care (01) ==
LOC: EME 12:22
DX: S42.252A Displaced fracture of greater tuberosity of left humerus, initial encounter for closed fracture (principal); S42.262A Displaced fracture of lesser tuberosity of left humerus, initial encounter for closed fracture; W01.0XXA Fall on same level from slipping, tripping and stumbling without subsequent striking against object, initial encounter; Y92.219 Unspecified school as the place of occurrence of the external cause; D86.9 Sarcoidosis, unspecified; I10 Essential (primary) hypertension; J45.909 Unspecified asthma, uncomplicated; Z79.891 Long term (current) use of opiate analgesic; F17.200 Nicotine dependence, unspecified, uncomplicated
CPT/HCPCS: 73030; 99281; 99284; J3010

== ENCOUNTER 2017-07-03 12:33 | Inpatient (IN) | payer OTHER ==
[~2017-07-03] VITALS: Ht 157.5 cm; Wt 74.9 kg
[~2017-07-03 12:33] MED LIST changes: -BUSPAR10 MG PO; +BUSPAR15 MG PO; +LORTAB 10-3251 EACH PO; -SEROQUEL50 MG PO
[2017-07-03 13:24] LABS: HEMATOCRIT 38.9 % (36.0-46.0); MCH 35.1 PG (29.0-34.0); MCHC 35.7 G/DL (30.0-36.0); MCV 98.2 FL (83-99); MEAN PLAT.VOLUME 9.6 uM^3 (9.5-12.4); PLATELET COUNT 403 K/uL (156-360); RBC DIS.WIDTH-SD 63.7 % (39-53); RED BLOOD COUNT 3.96 M/uL (3.80-5.20); WHITE BLOOD COUNT 11.2 K/uL (4.1-10.2)
[2017-07-03 13:37] LABS: CHLORIDE 102 mEq/L (99-109); POTASSIUM 3.2 mEq/L (3.7-5.4); SODIUM 139 mEq/L (136-147)
[2017-07-03 13:39] LABS: GLUCOSE 87 mg/dL (70-99)
[2017-07-03 13:40] LABS: ANION GAP 13 MEQ/L (2-14)
[2017-07-03 13:41] LABS: TOTAL BILIRUBIN 0.7 mg/dL (0.0-1.0)
[2017-07-03 13:42] LABS: SERUM ETHYL ALCOHOL < 10 mg/dL
[2017-07-03 13:43] LABS: ALKALINE PHOSPHATASE 202 IU/L (3-129); GFR ESTIMATE (CALCULATED) > 59 mL/min/
[2017-07-03 13:44] LABS: UREA NITROGEN (BUN) 6 mg/dL (9-23)
[2017-07-03 13:46] LABS: LIPASE 899 U/L (1.0-51.0)
[2017-07-03 13:52] LABS: QUANTITATIVE HCG < 4.0 MIU/ML
[2017-07-03] MEDS ORDERED: TOPROL XL25 MG PO (16:17)
[2017-07-03] MEDS ORDERED: K-DUR20 MEQ PO (16:18)
[2017-07-03 17:31] LABS: ADD MIUA? YES; BILIRUBIN NEGATIVE; BLOOD NEGATIVE; COLOR YELLOW ((YELLOW)); GLUCOSE (STRIP) NEGATIVE; KETONES NEGATIVE; LEUKOCYTES NEGATIVE; NITRITE NEGATIVE; PROTEIN (STRIP) 30
[2017-07-03 17:37] LABS: BACTERIA RARE /HPF; EPITHELIAL CELLS 1+ /HPF; HYALINE CASTS 0-5 /LPF; MUCUS 2+ /LPF; RED BLOOD CELLS 0-5 /HPF (0-5); UCUL ADDED? NO; UNCLASSIFIED CRYSTALS 1+ /HPF; WHITE BLOOD CELLS 0-5 /HPF (0-5)
[2017-07-03 21:36] VITALS: BP 197/110
[2017-07-03 22:48] VITALS: BP 210/110
[2017-07-04] VITALS (8 sets, daily range): BP systolic 133–220; BP diastolic 82–129
[2017-07-04 06:46] LABS: HEMATOCRIT 34.5 % (36.0-46.0); MCH 34.3 PG (29.0-34.0); MCHC 35.1 G/DL (30.0-36.0); MCV 97.7 FL (83-99); MEAN PLAT.VOLUME 10.1 uM^3 (9.5-12.4); PLATELET COUNT 353 K/uL (156-360); RBC DIS.WIDTH-CV 18.6 % (11.8-14.6); RBC DIS.WIDTH-SD 64.1 % (39-53); RED BLOOD COUNT 3.53 M/uL (3.80-5.20)
[2017-07-04 07:14] LABS: ANION GAP 7 MEQ/L (2-14); CHLORIDE 104 MEQ/L (99-109); GFR ESTIMATE (CALCULATED) > 59 mL/min/; GLUCOSE 103 mg/dL (70-99); POTASSIUM 3.6 MEQ/L (3.7-5.4); SAMPLE HEMOLYSIS CHECK 0; SAMPLE ICTERIC CHECK 0; SAMPLE LIPEMIA CHECK 0; SODIUM 138 MEQ/L (136-147); UREA NITROGEN (BUN) 5 mg/dL (9-23)
[2017-07-05 03:42] VITALS: BP 181/118
[2017-07-05 06:32] LABS: HEMATOCRIT 36.4 % (36.0-46.0); MCH 34.3 PG (29.0-34.0); MCHC 33.5 G/DL (30.0-36.0); MEAN PLAT.VOLUME 10.2 uM^3 (9.5-12.4); PLATELET COUNT 357 K/uL (156-360); RBC DIS.WIDTH-CV 19.3 % (11.8-14.6); RBC DIS.WIDTH-SD 73.5 % (39-53); RED BLOOD COUNT 3.56 M/uL (3.80-5.20); WHITE BLOOD COUNT 13.3 K/uL (4.1-10.2)
[2017-07-05 06:34] LABS: MCV 102.2 FL (83-99)
[2017-07-05 06:53] LABS: ANION GAP 9 MEQ/L (2-14); CHLORIDE 109 MEQ/L (99-109); GFR ESTIMATE (CALCULATED) > 59 mL/min/; SAMPLE HEMOLYSIS CHECK 1; SAMPLE ICTERIC CHECK 0; SAMPLE LIPEMIA CHECK 0; SODIUM 140 MEQ/L (136-147); UREA NITROGEN (BUN) 6 mg/dL (9-23)
[2017-07-05 07:03] LABS: GLUCOSE 55 mg/dL (70-99); POTASSIUM 4.5 MEQ/L (3.7-5.4)
[2017-07-05 07:51] VITALS: BP 191/120
[2017-07-05 11:23] VITALS: BP 186/119
[2017-07-05 14:14] VITALS: BP 135/96
[2017-07-05 16:14] VITALS: BP 167/103
[2017-07-05 23:47] VITALS: BP 128/87
[2017-07-06 06:58] VITALS: BP 171/86
[2017-07-06 08:15] LABS: HEMATOCRIT 35.7 % (36.0-46.0); MCH 33.6 PG (29.0-34.0); MCHC 33.6 G/DL (30.0-36.0); MEAN PLAT.VOLUME 9.9 uM^3 (9.5-12.4); PLATELET COUNT 379 K/uL (156-360); RBC DIS.WIDTH-CV 19.1 % (11.8-14.6); RBC DIS.WIDTH-SD 71.2 % (39-53); RED BLOOD COUNT 3.57 M/uL (3.80-5.20); WHITE BLOOD COUNT 9.6 K/uL (4.1-10.2)
[2017-07-06 08:41] LABS: ANION GAP 8 MEQ/L (2-14); CHLORIDE 107 MEQ/L (99-109); GFR ESTIMATE (CALCULATED) > 59 mL/min/; POTASSIUM 4.1 MEQ/L (3.7-5.4); SAMPLE HEMOLYSIS CHECK 0; SAMPLE ICTERIC CHECK 0; SAMPLE LIPEMIA CHECK 0; SODIUM 139 MEQ/L (136-147); UREA NITROGEN (BUN) 3 mg/dL (9-23)
[2017-07-06 08:46] LABS: GLUCOSE 92 mg/dL (70-99)
[2017-07-06] MEDS ORDERED: METOPROLOL SUCC50 MG PO (09:05)
[2017-07-06] MEDS ORDERED: APRESOLINE25 MG PO (09:13)
[2017-07-06] MEDS ORDERED: COZAAR100 MG PO (09:14)
[2017-07-06] MEDS ORDERED: ENDOCET 10-3251 EACH PO (09:15)
[2017-07-06] MEDS ORDERED: MORPHINE SULFAT30 M2 PO (09:15)
== END 2017-07-06 14:07 | disposition home or self-care (01) | DRG 440 ==
LOC: EME 12:33 → EDOF 14:41 → ENRESERV 14:52 → 5SOUTH 21:16 → ENPENDDIS 07-06 → 5SOUTH 07-06 14:07
PROVIDERS: Emergency Medicine; Internal Medicine; Nurse Practitioner Adult Health
DX: K85.90 Acute pancreatitis without necrosis or infection, unspecified (principal); I10 Essential (primary) hypertension; E78.5 Hyperlipidemia, unspecified; J45.909 Unspecified asthma, uncomplicated; G89.29 Other chronic pain; M54.5 Low back pain; K21.9 Gastro-esophageal reflux disease without esophagitis; F17.200 Nicotine dependence, unspecified, uncomplicated; E87.6 Hypokalemia; F41.9 Anxiety disorder, unspecified; F32.9 Major depressive disorder, single episode, unspecified; Z90.49 Acquired absence of other specified parts of digestive tract; S42.92XD Fracture of left shoulder girdle, part unspecified, subsequent encounter for fracture with routine healing; Z86.73 Personal history of transient ischemic attack (TIA), and cerebral infarction without residual deficits; Z83.3 Family history of diabetes mellitus; Z79.899 Other long term (current) drug therapy; Z88.1 Allergy status to other antibiotic agents; Z88.0 Allergy status to penicillin; Z88.2 Allergy status to sulfonamides; Z82.49 Family history of ischemic heart disease and other diseases of the circulatory system
CPT/HCPCS: 74020; 80048; 80053; 81003; 83690; 84702; 85027; 94640; 94640 76; 99202; 99281; 99285; G0480; J0360; J1170; J1644; J2270; J2405; J3010; J3480; J7030; Q0169; S0028

== ENCOUNTER 2017-08-04 16:22 | Emergency (ER) | payer OTHER ==
[~2017-08-04] VITALS: Ht 157.5 cm; Wt 71.4 kg
[~2017-08-04 16:22] MED LIST changes: +METOPROLOL SUCC50 MG PO; +TOPROL XL25 MG PO
[2017-08-04 18:07] LABS: MCHC 35.5 G/DL (30.0-36.0); RBC DIS.WIDTH-CV 18.9 % (11.8-14.6); RBC DIS.WIDTH-SD 66.6 % (39-53); WHITE BLOOD COUNT 6.2 K/uL (4.1-10.2)
[2017-08-04 18:08] LABS: CHLORIDE 104 mEq/L (99-109); POTASSIUM 3.3 mEq/L (3.7-5.4); SODIUM 137 mEq/L (136-147)
[2017-08-04 18:10] LABS: GLUCOSE 94 mg/dL (70-99)
[2017-08-04 18:13] LABS: CREATININE 0.7 mg/dL (0.6-1.3); GFR ESTIMATE (CALCULATED) > 59 mL/min/
[2017-08-04 18:14] LABS: UREA NITROGEN (BUN) 5 mg/dL (9-23)
[2017-08-04 18:56] LABS: PLAT.SUFFICIENCY ADEQUATE
[2017-08-04 18:59] LABS: HEMOGLOBIN 14.9 G/DL (11.9-15.5); MCV 95.9 FL (83-99); RED BLOOD COUNT 4.38 M/uL (3.80-5.20)
[2017-08-04 19:03] LABS: PLATELET COUNT 243 K/uL (156-360)
[2017-08-04] MEDS ORDERED: CLONIDINE HCL0.1 MG PO (20:14)
[2017-08-04 20:46] LABS: APPEARANCE SL.HAZY ((CLEAR)); BILIRUBIN SMALL; BLOOD NEGATIVE; COLOR AMBER ((YELLOW)); GLUCOSE (STRIP) NEGATIVE; KETONES NEGATIVE; LEUKOCYTES NEGATIVE; NITRITE NEGATIVE; PROTEIN (STRIP) 30; SPECIFIC GRAVITY 1.023 (1.000-1.030)
[2017-08-04 21:03] LABS: BACTERIA RARE /HPF; EPITHELIAL CELLS 1+ /HPF; HYALINE CASTS 0-5 /LPF; MUCUS 3+ /LPF; RED BLOOD CELLS 0-5 /HPF (0-5); WHITE BLOOD CELLS 0-5 /HPF (0-5)
[2017-08-04 22:19] VITALS: BP 144/103
== END 2017-08-04 22:22 | disposition home or self-care (01) ==
LOC: EME 16:22
PROVIDERS: Emergency Medicine Emergency Medical Services
DX: I10 Essential (primary) hypertension (principal); Z91.14 Patient's other noncompliance with medication regimen; G44.89 Other headache syndrome; R53.83 Other fatigue; R42 Dizziness and giddiness; J34.89 Other specified disorders of nose and nasal sinuses; J45.909 Unspecified asthma, uncomplicated; Z86.73 Personal history of transient ischemic attack (TIA), and cerebral infarction without residual deficits; F17.200 Nicotine dependence, unspecified, uncomplicated
CPT/HCPCS: 80048; 81003; 85027; 93005

== ENCOUNTER 2017-08-17 23:33 | Observation (INO) | payer OTHER ==
[~2017-08-17] VITALS: Ht 157.5 cm; Wt 69.6 kg
[~2017-08-17 23:33] MED LIST changes: +CLONIDINE HCL0.1 MG PO; +XANAX0.25 MG PO; -XANAX1 MG PO
[2017-08-18 02:45] LABS: BASOPHIL (%) 0.3 % (0-1); EOSINOPHIL (%) 4.2 % (0-5); EOSINOPHIL COUNT 0.4 K/uL (0-0.3); HEMATOCRIT 38.1 % (36.0-46.0); HEMOGLOBIN 13.8 G/DL (11.9-15.5); IMMATURE GRANULOCYTE (%) 0.1 % (0.0-0.7); LYMPHOCYTE (%) 31.3 % (15-42); MCH 34.8 PG (29.0-34.0); MCHC 36.2 G/DL (30.0-36.0); MCV 96.2 FL (83-99); MONOCYTE (%) 8.6 % (3-12); MONOCYTE COUNT 0.8 K/uL (0-0.8); NEUTROPHIL (%) 55.5 % (45-76); NEUTROPHIL COUNT 5.2 K/uL (1.8-6.4); RBC DIS.WIDTH-CV 19.4 % (11.8-14.6); RED BLOOD COUNT 3.96 M/uL (3.80-5.20); WHITE BLOOD COUNT 9.4 K/uL (4.1-10.2)
[2017-08-18 02:49] LABS: PLATELET COUNT 365 K/uL (156-360)
[2017-08-18 02:54] LABS: CHLORIDE 100 mEq/L (99-109); POTASSIUM 3.2 mEq/L (3.7-5.4); SODIUM 137 mEq/L (136-147)
[2017-08-18 02:56] LABS: GLUCOSE 92 mg/dL (70-99)
[2017-08-18 03:00] LABS: CREATININE 0.7 mg/dL (0.6-1.3); GFR ESTIMATE (CALCULATED) > 59 mL/min/; UREA NITROGEN (BUN) 4 mg/dL (9-23)
[2017-08-18 03:06] LABS: TROP-I INTERPRETATION NEGATIVE; TROPONIN-I < 0.01 ng/mL (0.0-0.30)
[2017-08-18] MEDS ORDERED: ALBUTEROL2.5 MG/3 M IH (07:26)
[2017-08-18] MEDS ORDERED: CATAPRES0.1 MG PO (07:27)
[2017-08-18] MEDS ORDERED: OXYCODONE HCL15 MG PO (07:29)
[2017-08-18 08:48] VITALS: BP 137/82
[2017-08-18 16:01] VITALS: BP 134/84
[2017-08-18 19:05] VITALS: BP 157/81
[2017-08-18 23:40] VITALS: BP 151/75
[2017-08-19 03:43] VITALS: BP 147/73
[2017-08-19 08:20] VITALS: BP 131/87
[2017-08-19 11:44] VITALS: BP 140/89
[2017-08-19] MEDS ORDERED: INCRUSE ELLI62.5 MCG IH (12:53)
[2017-08-19] MEDS ORDERED: PREDNISONE10 MG PO (13:00)
[2017-08-19] MEDS ORDERED: VENTOLIN HFA18 GM IH (13:00)
[2017-08-19] MEDS ORDERED: ADVAIR HFA120 INHALA IH (13:00)
[2017-08-19] MEDS ORDERED: TORADOL10 MG PO (13:00)
== END 2017-08-19 15:41 | disposition home or self-care (01) ==
LOC: EME 23:33 → EDOF 08-18 05:23 → ENRESERV 08-18 05:25 → 3EAST 08-18 08:29
PROVIDERS: Emergency Medicine; Family Medicine; Hospitalist
DX: J45.901 Unspecified asthma with (acute) exacerbation (principal); D86.9 Sarcoidosis, unspecified; F17.210 Nicotine dependence, cigarettes, uncomplicated; F10.20 Alcohol dependence, uncomplicated; G89.29 Other chronic pain; R21 Rash and other nonspecific skin eruption; I10 Essential (primary) hypertension; E78.5 Hyperlipidemia, unspecified; F41.9 Anxiety disorder, unspecified; F31.9 Bipolar disorder, unspecified; M79.7 Fibromyalgia; E11.9 Type 2 diabetes mellitus without complications; Z90.49 Acquired absence of other specified parts of digestive tract; Z82.49 Family history of ischemic heart disease and other diseases of the circulatory system; Z83.3 Family history of diabetes mellitus; K21.9 Gastro-esophageal reflux disease without esophagitis; Z88.0 Allergy status to penicillin; Z88.2 Allergy status to sulfonamides
CPT/HCPCS: 71046; 80048; 80306 90; 82948; 83880; 84484; 85025; 87502; 94640; 94640 76; 94760; 99202; 99281; 99285; G0378; J1100; J1200; J1650; J2920; J2930; J3475

== ENCOUNTER 2017-09-13 21:39 | Emergency (ER) | payer OTHER ==
[~2017-09-13] VITALS: Ht 167.6 cm; Wt 80.7 kg
[~2017-09-13 21:39] MED LIST changes: +ADVAIR HFA120 INHALA IH; +CATAPRES0.1 MG PO; -GUMMI BEAR MUL1 EACH PO; +MULTI VITAMIN1 EACH PO; +OXYCODONE HCL15 MG PO; -TIZANIDINE HCL4 MG PO; +TORADOL10 MG PO; +ZANAFLEX6 MG PO
[2017-09-13 23:58] LABS: ALBUMIN 4.1 g/dL (3.2-4.8); CHLORIDE 98 mEq/L (99-109); POTASSIUM 3.2 mEq/L (3.7-5.4); SODIUM 140 mEq/L (136-147)
[2017-09-14] LABS: GLUCOSE 86 mg/dL (70-99)
[2017-09-14 00:01] LABS: TOTAL PROTEIN 7.2 g/dL (6.4-8.3)
[2017-09-14 00:02] LABS: TOTAL BILIRUBIN 0.7 mg/dL (0.0-1.0)
[2017-09-14 00:04] LABS: ALKALINE PHOSPHATASE 99 IU/L (3-129); CREATININE 0.7 mg/dL (0.6-1.3); GFR ESTIMATE (CALCULATED) > 59 mL/min/; HEMATOCRIT 33.1 % (36.0-46.0); MCH 37.3 PG (29.0-34.0); MCHC 36.3 G/DL (30.0-36.0); NRBC (%) 0.2 /100 WBC (0-0); PLATELET COUNT 302 K/uL (156-360); RBC DIS.WIDTH-CV 21.2 % (11.8-14.6); RBC DIS.WIDTH-SD 79.1 % (39-53); RED BLOOD COUNT 3.22 M/uL (3.80-5.20); WHITE BLOOD COUNT 15.5 K/uL (4.1-10.2)
[2017-09-14 00:05] LABS: UREA NITROGEN (BUN) 6 mg/dL (9-23)
[2017-09-14 00:06] LABS: AST (GOT) 32 IU/L (2-34)
[2017-09-14 00:07] LABS: ALT (GPT) 27 IU/L (3-49); MCV 102.8 FL (83-99)
[2017-09-14] MEDS ORDERED: CLEOCIN300 MG PO (01:13)
[2017-09-14] MEDS ORDERED: PERCOCET 5/31 TABLET PO (01:13)
[2017-09-14 02:44] VITALS: BP 133/75
== END 2017-09-14 02:45 | disposition home or self-care (01) ==
LOC: EME 21:39
PROVIDERS: Physician Assistant
DX: L03.115 Cellulitis of right lower limb (principal); R60.0 Localized edema; E11.9 Type 2 diabetes mellitus without complications; I10 Essential (primary) hypertension; J45.909 Unspecified asthma, uncomplicated; M79.7 Fibromyalgia; F41.9 Anxiety disorder, unspecified; D86.9 Sarcoidosis, unspecified; F17.200 Nicotine dependence, unspecified, uncomplicated; F32.9 Major depressive disorder, single episode, unspecified; K21.9 Gastro-esophageal reflux disease without esophagitis; Z86.73 Personal history of transient ischemic attack (TIA), and cerebral infarction without residual deficits; Z88.0 Allergy status to penicillin; Z88.2 Allergy status to sulfonamides
CPT/HCPCS: 80053; 81003; 85027; 93970; 99281; 99285

== ENCOUNTER 2017-09-17 03:39 | Inpatient (IN) | payer OTHER ==
[~2017-09-17] VITALS: Ht 157.5 cm; Wt 77.5 kg
[2017-09-17 04:46] LABS: HEMATOCRIT 31.2 % (36.0-46.0); HEMOGLOBIN 11.2 G/DL (11.9-15.5); MCH 37.6 PG (29.0-34.0); MCHC 35.9 G/DL (30.0-36.0); MCV 104.7 FL (83-99); PLATELET COUNT 308 K/uL (156-360); RBC DIS.WIDTH-CV 20.8 % (11.8-14.6); RBC DIS.WIDTH-SD 78.1 % (39-53); RED BLOOD COUNT 2.98 M/uL (3.80-5.20); WHITE BLOOD COUNT 10.5 K/uL (4.1-10.2)
[2017-09-17 04:48] LABS: ALBUMIN 3.8 g/dL (3.2-4.8)
[2017-09-17 04:49] LABS: CHLORIDE 97 mEq/L (99-109); POTASSIUM 3.2 mEq/L (3.7-5.4); SODIUM 137 mEq/L (136-147)
[2017-09-17 04:51] LABS: GLUCOSE 88 mg/dL (70-99); TOTAL PROTEIN 7.2 g/dL (6.4-8.3)
[2017-09-17 04:53] LABS: TOTAL BILIRUBIN 0.6 mg/dL (0.0-1.0)
[2017-09-17 04:54] LABS: ALKALINE PHOSPHATASE 105 IU/L (3-129)
[2017-09-17 04:55] LABS: CREATININE 0.7 mg/dL (0.6-1.3); GFR ESTIMATE (CALCULATED) > 59 mL/min/
[2017-09-17 04:56] LABS: AST (GOT) 29 IU/L (2-34); UREA NITROGEN (BUN) 3 mg/dL (9-23)
[2017-09-17 04:58] LABS: ALT (GPT) 17 IU/L (3-49); LIPASE 22 U/L (1.0-51.0)
[2017-09-17 05:51] LABS: APPEARANCE CLEAR ((CLEAR)); BILIRUBIN NEGATIVE; BLOOD NEGATIVE; COLOR STRAW ((YELLOW)); GLUCOSE (STRIP) NEGATIVE; KETONES NEGATIVE; LEUKOCYTES NEGATIVE; NITRITE NEGATIVE; PROTEIN (STRIP) NEGATIVE; SPECIFIC GRAVITY 1.002 (1.000-1.030); UCUL ADDED? NO; UROBILINOGEN 0.2 MG/DL (0.2-1.0)
[2017-09-17 08:11] VITALS: BP 155/98
[2017-09-17] MEDS ORDERED: LASIX20 MG PO (09:54)
[2017-09-17] MEDS ORDERED: XANAX0.25 MG PO (09:55)
[2017-09-17 12:05] VITALS: BP 134/83
[2017-09-17 15:12] LABS: MAGNESIUM 1.6 mg/dL (1.3-2.7)
[2017-09-17 15:45] VITALS: BP 186/84
[2017-09-17 18:11] VITALS: BP 164/78
[2017-09-17 19:19] VITALS: BP 119/71
[2017-09-17 23:57] VITALS: BP 97/51
[2017-09-18 03:40] VITALS: BP 116/77
[2017-09-18 06:47] LABS: HEMATOCRIT 30.9 % (36.0-46.0); HEMOGLOBIN 10.4 G/DL (11.9-15.5); MCH 36.5 PG (29.0-34.0); MCHC 33.7 G/DL (30.0-36.0); MCV 108.4 FL (83-99); PLATELET COUNT 303 K/uL (156-360); RBC DIS.WIDTH-CV 20.9 % (11.8-14.6); RBC DIS.WIDTH-SD 82.3 % (39-53); RED BLOOD COUNT 2.85 M/uL (3.80-5.20); WHITE BLOOD COUNT 7.6 K/uL (4.1-10.2)
[2017-09-18 06:50] LABS: BASOPHIL (%) 0.3 % (0-1); EOSINOPHIL (%) 3.3 % (0-5); EOSINOPHIL COUNT 0.3 K/uL (0-0.3); IMMATURE GRANULOCYTE (%) 0.4 % (0.0-0.7); LYMPHOCYTE (%) 16.4 % (15-42); LYMPHOCYTE COUNT 1.3 K/uL (1.0-2.8); MONOCYTE (%) 9.2 % (3-12); MONOCYTE COUNT 0.7 K/uL (0-0.8); NEUTROPHIL (%) 70.4 % (45-76); NEUTROPHIL COUNT 5.4 K/uL (1.8-6.4)
[2017-09-18 07:13] LABS: CHLORIDE 102 MEQ/L (99-109); CREATININE 0.5 MG/DL (0.6-1.3); GFR ESTIMATE (CALCULATED) > 59 mL/min/; GLUCOSE 80 mg/dL (70-99); SODIUM 138 MEQ/L (136-147); UREA NITROGEN (BUN) 6 mg/dL (9-23)
[2017-09-18 07:15] LABS: POTASSIUM 4.4 MEQ/L (3.7-5.4)
[2017-09-18 07:31] VITALS: BP 103/56
[2017-09-18 09:53] VITALS: BP 98/52
[2017-09-18 11:37] VITALS: BP 103/58
[2017-09-18 15:47] VITALS: BP 132/66
[2017-09-18 19:58] VITALS: BP 106/60
[2017-09-19] VITALS (7 sets, daily range): BP systolic 101–136; BP diastolic 55–84
[2017-09-20] VITALS: BP 105/62
[2017-09-20 03:48] VITALS: BP 116/74
[2017-09-20 07:07] VITALS: BP 122/73
[2017-09-20 07:16] LABS: MCH 36.5 PG (29.0-34.0); MCHC 33.3 G/DL (30.0-36.0); MCV 109.5 FL (83-99); PLATELET COUNT 324 K/uL (156-360); RBC DIS.WIDTH-CV 20.7 % (11.8-14.6); RBC DIS.WIDTH-SD 82.2 % (39-53); RED BLOOD COUNT 2.74 M/uL (3.80-5.20); WHITE BLOOD COUNT 6.8 K/uL (4.1-10.2)
[2017-09-20] MEDS ORDERED: KEFLEX500 MG PO (07:35)
[2017-09-20] MEDS ORDERED: PERCOCET 5/31 TABLET PO (08:40)
== END 2017-09-20 09:55 | disposition home or self-care (01) | DRG 603 ==
LOC: EME 03:39 → 5SOUTH 05:16 → EDOF 05:16 → ENRESERV 05:19 → 5SOUTH 07:55
PROVIDERS: Emergency Medicine; Hospitalist; Physician Assistant Medical
DX: L03.115 Cellulitis of right lower limb (principal); L03.116 Cellulitis of left lower limb; I95.9 Hypotension, unspecified; E87.2 Acidosis; E87.6 Hypokalemia; D86.9 Sarcoidosis, unspecified; G89.29 Other chronic pain; M47.896 Other spondylosis, lumbar region; M79.7 Fibromyalgia; J45.20 Mild intermittent asthma, uncomplicated; I10 Essential (primary) hypertension; K21.9 Gastro-esophageal reflux disease without esophagitis; D64.9 Anemia, unspecified; R73.03 Prediabetes; G43.909 Migraine, unspecified, not intractable, without status migrainosus; R01.1 Cardiac murmur, unspecified; R00.0 Tachycardia, unspecified; R60.0 Localized edema; E78.5 Hyperlipidemia, unspecified; F10.21 Alcohol dependence, in remission; F41.9 Anxiety disorder, unspecified; F31.70 Bipolar disorder, currently in remission, most recent episode unspecified; E66.9 Obesity, unspecified; Z68.31 Body mass index [BMI] 31.0-31.9, adult; Z86.73 Personal history of transient ischemic attack (TIA), and cerebral infarction without residual deficits; F17.210 Nicotine dependence, cigarettes, uncomplicated; Z82.49 Family history of ischemic heart disease and other diseases of the circulatory system; Z83.3 Family history of diabetes mellitus
CPT/HCPCS: 80048; 80053; 81003; 83605; 83690; 83735; 85025; 85027; 94640; 99202; 99281; 99285; J0690; J1650; J1885; J2270; J3370; J7030

== ENCOUNTER 2017-11-13 02:31 | Emergency (ER) | payer OTHER ==
[~2017-11-13] VITALS: Ht 157.5 cm; Wt 74.8 kg
[~2017-11-13 02:31] MED LIST changes: +LASIX20 MG PO
[2017-11-13 06:12] LABS: HEMATOCRIT 38.8 % (36.0-46.0); HEMOGLOBIN 14.2 G/DL (11.9-15.5); MCH 39.3 PG (29.0-34.0); MCHC 36.6 G/DL (30.0-36.0); MCV 107.5 FL (83-99); PLATELET COUNT 190 K/uL (156-360); RBC DIS.WIDTH-SD 66.7 % (39-53); RED BLOOD COUNT 3.61 M/uL (3.80-5.20); WHITE BLOOD COUNT 8.3 K/uL (4.1-10.2)
[2017-11-13 06:21] LABS: ALBUMIN 3.8 g/dL (3.2-4.8); CHLORIDE 103 mEq/L (99-109); POTASSIUM 3.5 mEq/L (3.7-5.4); SODIUM 141 mEq/L (136-147)
[2017-11-13 06:23] LABS: GLUCOSE 77 mg/dL (70-99); TOTAL PROTEIN 7.3 g/dL (6.4-8.3)
[2017-11-13 06:25] LABS: TOTAL BILIRUBIN 0.7 mg/dL (0.0-1.0)
[2017-11-13 06:27] LABS: ALKALINE PHOSPHATASE 140 IU/L (3-129); CREATININE 0.6 mg/dL (0.6-1.3); GFR ESTIMATE (CALCULATED) > 59 mL/min/
[2017-11-13 06:28] LABS: AST (GOT) 81 IU/L (2-34); DIRECT BILIRUBIN 0.3 mg/dL (0.0-0.3); UREA NITROGEN (BUN) 5 mg/dL (9-23)
[2017-11-13 06:30] LABS: ALT (GPT) 38 IU/L (3-49); LIPASE 52 U/L (1.0-51.0)
[2017-11-13 07:10] LABS: C-REACTIVE PROTEIN 4.9 MG/L (0-10)
[2017-11-13] MEDS ORDERED: NORCO 5/3251 TABLET PO (07:13)
[2017-11-13] MEDS ORDERED: LIDOCAINE700 MG TP (07:13)
[2017-11-13 07:37] LABS: ERTH.SED.RATE 5 MM/HR (0-20)
[2017-11-13 07:56] VITALS: BP 155/103
== END 2017-11-13 07:57 | disposition home or self-care (01) ==
LOC: EME 02:31
PROVIDERS: Emergency Medicine
DX: N64.4 Mastodynia (principal); N63.20 Unspecified lump in the left breast, unspecified quadrant; I10 Essential (primary) hypertension; J45.909 Unspecified asthma, uncomplicated; Z88.0 Allergy status to penicillin; Z88.2 Allergy status to sulfonamides; Z88.8 Allergy status to other drugs, medicaments and biological substances; Z91.040 Latex allergy status
CPT/HCPCS: 71046; 80048; 80076; 83690; 85027; 85651; 86140; 99281; 99284

== ENCOUNTER 2017-11-18 20:57 | Emergency (ER) | payer OTHER ==
[~2017-11-18] VITALS: Ht 157.5 cm; Wt 74.5 kg
[~2017-11-18 20:57] MED LIST changes: +LIDOCAINE700 MG TP
[2017-11-18 21:49] LABS: HEMATOCRIT 40.5 % (36.0-46.0); MCH 39.3 PG (29.0-34.0); RBC DIS.WIDTH-CV 16.2 % (11.8-14.6); RBC DIS.WIDTH-SD 64.2 % (39-53); RED BLOOD COUNT 3.82 M/uL (3.80-5.20); WHITE BLOOD COUNT 7.1 K/uL (4.1-10.2)
[2017-11-18 21:58] LABS: ALBUMIN 3.6 g/dL (3.2-4.8); CHLORIDE 98 mEq/L (99-109); POTASSIUM 3.2 mEq/L (3.7-5.4); SODIUM 138 mEq/L (136-147)
[2017-11-18 22:01] LABS: GLUCOSE 103 mg/dL (70-99); TOTAL PROTEIN 7.3 g/dL (6.4-8.3)
[2017-11-18 22:04] LABS: ALKALINE PHOSPHATASE 165 IU/L (3-129); CREATININE 0.6 mg/dL (0.6-1.3); GFR ESTIMATE (CALCULATED) > 59 mL/min/
[2017-11-18 22:05] LABS: UREA NITROGEN (BUN) 2 mg/dL (9-23)
[2017-11-18 22:06] LABS: AST (GOT) 94 IU/L (2-34)
[2017-11-18 22:07] LABS: ALT (GPT) 39 IU/L (3-49)
[2017-11-18 22:08] LABS: LIPASE 33 U/L (1.0-51.0)
[2017-11-18 22:12] LABS: PLATELET COUNT 319 K/uL (156-360)
[2017-11-18 22:13] LABS: QUANTITATIVE HCG < 4.0 MIU/ML
[2017-11-18 23:16] LABS: APPEARANCE CLEAR ((CLEAR)); BILIRUBIN NEGATIVE; BLOOD SMALL; COLOR YELLOW ((YELLOW)); GLUCOSE (STRIP) NEGATIVE; KETONES NEGATIVE; LEUKOCYTES NEGATIVE; NITRITE NEGATIVE; PROTEIN (STRIP) 30; SPECIFIC GRAVITY 1.012 (1.000-1.030)
[2017-11-18 23:28] LABS: BACTERIA RARE /HPF; EPITHELIAL CELLS 1+ /HPF; HYALINE CASTS 0-5 /LPF; MUCUS TRACE /LPF; RED BLOOD CELLS 0-5 /HPF (0-5); UCUL ADDED? NO; WHITE BLOOD CELLS 0-5 /HPF (0-5)
[2017-11-18] MEDS ORDERED: PHENERGAN25 MG PR (23:51)
[2017-11-18] MEDS ORDERED: OMEPRAZOLE40 M1 PO (23:51)
[2017-11-19 00:13] VITALS: BP 178/96
== END 2017-11-19 00:14 | disposition home or self-care (01) ==
LOC: EME 20:57
PROVIDERS: Physician Assistant
DX: R10.13 Epigastric pain (principal); I10 Essential (primary) hypertension; K21.9 Gastro-esophageal reflux disease without esophagitis; J45.909 Unspecified asthma, uncomplicated; F32.9 Major depressive disorder, single episode, unspecified; E11.9 Type 2 diabetes mellitus without complications; M79.7 Fibromyalgia; F17.200 Nicotine dependence, unspecified, uncomplicated; Z71.6 Tobacco abuse counseling; F41.9 Anxiety disorder, unspecified; Z86.73 Personal history of transient ischemic attack (TIA), and cerebral infarction without residual deficits; Z88.0 Allergy status to penicillin; Z88.2 Allergy status to sulfonamides
CPT/HCPCS: 74022; 76705; 80053; 81003; 83690; 84702; 85027; 93005; 99281; 99285; C9113; J2765; J3010; J7030

== ENCOUNTER 2017-11-29 04:32 | Inpatient (IN) | payer OTHER ==
[~2017-11-29] VITALS: Ht 157.5 cm; Wt 79.9 kg
[~2017-11-29 04:32] MED LIST changes: +PHENERGAN25 MG PR
[2017-11-29 06:54] LABS: INTER. NORMALIZED RATIO 1.2
[2017-11-29 07:14] LABS: CHLORIDE 98 MEQ/L (99-109); CREATININE 1.7 MG/DL (0.6-1.3); GFR ESTIMATE (CALCULATED) 43 mL/min/; GLUCOSE 96 mg/dL (70-99); SODIUM 135 MEQ/L (136-147); UREA NITROGEN (BUN) 10 mg/dL (9-23)
[2017-11-29 07:33] LABS: CREATINE KINASE 56 IU/L (1-294); TOTAL CK 56 IU/L (1-294)
[2017-11-29 07:52] LABS: CK-MB 2.1 ng/mL (0.0-4.9); CKMB RELATIVE INDEX 3.8 (0.0-3.9)
[2017-11-29 09:30] LABS: BASOPHIL (%) 0.2 % (0-1); EOSINOPHIL (%) 0.5 % (0-5); EOSINOPHIL COUNT 0.1 K/uL (0-0.3); HEMATOCRIT 35.4 % (36.0-46.0); HEMOGLOBIN 13.1 G/DL (11.9-15.5); IMMATURE GRANULOCYTE (%) 0.3 % (0.0-0.7); LYMPHOCYTE (%) 19.9 % (15-42); MCH 38.4 PG (29.0-34.0); MCV 103.8 FL (83-99); MONOCYTE (%) 9.8 % (3-12); NEUTROPHIL (%) 69.3 % (45-76); NEUTROPHIL COUNT 7.1 K/uL (1.8-6.4); PLATELET COUNT 304 K/uL (156-360); RBC DIS.WIDTH-CV 16.3 % (11.8-14.6); RBC DIS.WIDTH-SD 62.8 % (39-53); RED BLOOD COUNT 3.41 M/uL (3.80-5.20); WHITE BLOOD COUNT 10.2 K/uL (4.1-10.2)
[2017-11-29 09:32] LABS: APPEARANCE CLEAR ((CLEAR)); BILIRUBIN NEGATIVE; BLOOD MODERATE; COLOR YELLOW ((YELLOW)); GLUCOSE (STRIP) NEGATIVE; KETONES NEGATIVE; LEUKOCYTES MODERATE; NITRITE NEGATIVE; PROTEIN (STRIP) NEGATIVE; SPECIFIC GRAVITY 1.005 (1.000-1.030); UROBILINOGEN 0.2 MG/DL (0.2-1.0)
[2017-11-29 09:43] LABS: BACTERIA RARE /HPF; EPITHELIAL CELLS RARE /HPF; MUCUS NONE SEEN /LPF
[2017-11-29 11:25] LABS: LIPASE 175 U/L (1.0-51.0)
[2017-11-29] MEDS ORDERED: CLONIDINE HCL0.2 MG PO (11:30)
[2017-11-29] MEDS ORDERED: APRESOLINE25 MG PO (11:30)
[2017-11-29 13:20] VITALS: BP 178/129
[2017-11-29 16:31] VITALS: BP 111/74
[2017-11-29 20:05] VITALS: BP 129/85
[2017-11-29 23:20] VITALS: BP 108/66
[2017-11-30] VITALS (8 sets, daily range): BP systolic 92–179; BP diastolic 55–93
[2017-11-30 05:27] LABS: HEMATOCRIT 31.4 % (36.0-46.0); HEMOGLOBIN 11.5 G/DL (11.9-15.5); MCHC 36.6 G/DL (30.0-36.0); MCV 106.4 FL (83-99); PLATELET COUNT 266 K/uL (156-360); RBC DIS.WIDTH-CV 16.6 % (11.8-14.6); RBC DIS.WIDTH-SD 65.5 % (39-53); RED BLOOD COUNT 2.95 M/uL (3.80-5.20); WHITE BLOOD COUNT 6.2 K/uL (4.1-10.2)
[2017-11-30 05:58] LABS: CHLORIDE 104 MEQ/L (99-109); GFR ESTIMATE (CALCULATED) 29 mL/min/; GLUCOSE 106 mg/dL (70-99); LIPASE 202 U/L (1.0-51.0); SODIUM 139 MEQ/L (136-147); UREA NITROGEN (BUN) 16 mg/dL (9-23)
[2017-11-30 06:26] LABS: CREATININE 2.4 MG/DL (0.6-1.3)
[2017-11-30 10:00] LABS: THYROTROPIN (TSH) 0.37 MIU/L (0.4-5.5)
[2017-11-30 16:04] LABS: UR CREATININE CONCENTRATION 206.1 MG/DL
[2017-12-01] VITALS (8 sets, daily range): BP systolic 97–150; BP diastolic 55–99
[2017-12-01 05:43] LABS: HEMOGLOBIN 11.2 G/DL (11.9-15.5); MCH 38.5 PG (29.0-34.0); PLATELET COUNT 205 K/uL (156-360); RBC DIS.WIDTH-CV 17.1 % (11.8-14.6); RBC DIS.WIDTH-SD 69.9 % (39-53); RED BLOOD COUNT 2.91 M/uL (3.80-5.20); WHITE BLOOD COUNT 6.7 K/uL (4.1-10.2)
[2017-12-01 06:07] LABS: C4 COMPLEMENT 30 MG/DL (10-40)
[2017-12-01 06:19] LABS: ALBUMIN 2.9 G/DL (3.2-4.8); CHLORIDE 108 MEQ/L (99-109); GFR ESTIMATE (CALCULATED) 38 mL/min/; GLUCOSE 90 mg/dL (70-99); MAGNESIUM 1.5 mg/dl (1.3-2.7); PHOSPHORUS 4.2 mg/dL (2.5-4.9); POTASSIUM 3.6 MEQ/L (3.7-5.4); SODIUM 140 MEQ/L (136-147); UREA NITROGEN (BUN) 18 mg/dL (9-23)
[2017-12-01 06:36] LABS: CREATININE 1.9 MG/DL (0.6-1.3)
[2017-12-01 11:26] LABS: HEPATITIS B SURFACE ANTIGEN Nonreactive; HEPATITIS C ANTIBODY Nonreactive
[2017-12-01 11:27] LABS: HEPATITIS B SURFACE ANTIBODY Nonreactive
[2017-12-02] VITALS (7 sets, daily range): BP systolic 108–173; BP diastolic 74–97
[2017-12-02 05:18] LABS: BASOPHIL (%) 0.3 % (0-1); EOSINOPHIL (%) 5.1 % (0-5); EOSINOPHIL COUNT 0.4 K/uL (0-0.3); HEMATOCRIT 32.2 % (36.0-46.0); HEMOGLOBIN 11.4 G/DL (11.9-15.5); IMMATURE GRANULOCYTE (%) 0.3 % (0.0-0.7); LYMPHOCYTE (%) 42.4 % (15-42); LYMPHOCYTE COUNT 3.3 K/uL (1.0-2.8); MCH 38.9 PG (29.0-34.0); MCHC 35.4 G/DL (30.0-36.0); MCV 109.9 FL (83-99); MONOCYTE (%) 12.1 % (3-12); MONOCYTE COUNT 0.9 K/uL (0-0.8); NEUTROPHIL (%) 39.8 % (45-76); NEUTROPHIL COUNT 3.1 K/uL (1.8-6.4); RBC DIS.WIDTH-CV 16.9 % (11.8-14.6); RED BLOOD COUNT 2.93 M/uL (3.80-5.20); WHITE BLOOD COUNT 7.7 K/uL (4.1-10.2)
[2017-12-02 05:21] LABS: PLATELET COUNT 355 K/uL (156-360)
[2017-12-02 05:41] LABS: ALBUMIN 3.1 G/DL (3.2-4.8); CHLORIDE 110 MEQ/L (99-109); GLUCOSE 93 mg/dL (70-99); PHOSPHORUS 3.8 mg/dL (2.5-4.9); POTASSIUM 4.2 MEQ/L (3.7-5.4); SODIUM 140 MEQ/L (136-147); UREA NITROGEN (BUN) 15 mg/dL (9-23)
[2017-12-02 05:53] LABS: CREATININE 1.1 MG/DL (0.6-1.3); GFR ESTIMATE (CALCULATED) > 59 mL/min/; MAGNESIUM 2.1 mg/dl (1.3-2.7)
[2017-12-03 04:50] VITALS: BP 141/98
[2017-12-03 05:51] LABS: ALBUMIN 2.7 G/DL (3.2-4.8); CHLORIDE 109 MEQ/L (99-109); CREATININE 0.9 MG/DL (0.6-1.3); GFR ESTIMATE (CALCULATED) > 59 mL/min/; GLUCOSE 98 mg/dL (70-99); PHOSPHORUS 4.1 mg/dL (2.5-4.9); POTASSIUM 4.3 MEQ/L (3.7-5.4); SODIUM 140 MEQ/L (136-147); UREA NITROGEN (BUN) 12 mg/dL (9-23)
[2017-12-03 07:10] VITALS: BP 138/92
[2017-12-03 11:35] LABS: APPEARANCE CLEAR/COLORLESS; CSF TUBE NUMBER TUBE #3; RED CELL COUNT 1 /MM^3 (0-1); WHITE CELL COUNT 0 /MM^3 (0-5)
[2017-12-03 12:19] LABS: CSF PROTEIN 66 mg/dL (15-45)
[2017-12-03 12:24] LABS: GLUCOSE, CSF 61 mg/dL (40-80)
[2017-12-03 16:08] VITALS: BP 171/105
[2017-12-03 16:35] LABS: MYELOPEROXIDASE ANTIBODY (MPO) <1.0 AI (<1.0); PROTEINASE-3 ANTIBODY+ <1.0 AI (<1.0)
[2017-12-03 19:10] VITALS: BP 143/100
[2017-12-04] VITALS (8 sets, daily range): BP systolic 113–175; BP diastolic 71–106
[2017-12-05] VITALS (7 sets, daily range): BP systolic 114–184; BP diastolic 7–112
[2017-12-06 04:25] VITALS: BP 170/115
[2017-12-06 05:21] LABS: BASOPHIL (%) 0.5 % (0-1); EOSINOPHIL (%) 8.7 % (0-5); EOSINOPHIL COUNT 0.6 K/uL (0-0.3); HEMATOCRIT 35.4 % (36.0-46.0); HEMOGLOBIN 12.3 G/DL (11.9-15.5); IMMATURE GRANULOCYTE (%) 0.2 % (0.0-0.7); LYMPHOCYTE (%) 38.5 % (15-42); LYMPHOCYTE COUNT 2.5 K/uL (1.0-2.8); MCH 37.8 PG (29.0-34.0); MCHC 34.7 G/DL (30.0-36.0); MCV 108.9 FL (83-99); MONOCYTE (%) 12.8 % (3-12); MONOCYTE COUNT 0.8 K/uL (0-0.8); NEUTROPHIL (%) 39.3 % (45-76); NEUTROPHIL COUNT 2.6 K/uL (1.8-6.4); PLATELET COUNT 422 K/uL (156-360); RBC DIS.WIDTH-CV 16.2 % (11.8-14.6); RED BLOOD COUNT 3.25 M/uL (3.80-5.20); WHITE BLOOD COUNT 6.5 K/uL (4.1-10.2)
[2017-12-06 06:09] LABS: CHLORIDE 101 MEQ/L (99-109); CREATININE 0.8 MG/DL (0.6-1.3); GFR ESTIMATE (CALCULATED) > 59 mL/min/; GLUCOSE 75 mg/dL (70-99); POTASSIUM 4.7 MEQ/L (3.7-5.4); SODIUM 137 MEQ/L (136-147); UREA NITROGEN (BUN) 7 mg/dL (9-23)
[2017-12-06 07:21] VITALS: BP 183/123
[2017-12-06 08:18] VITALS: BP 137/84
[2017-12-06 11:15] VITALS: BP 178/108
[2017-12-06 15:35] VITALS: BP 107/65
[2017-12-06 19:45] VITALS: BP 135/96
[2017-12-07] VITALS (7 sets, daily range): BP systolic 120–173; BP diastolic 76–112
[2017-12-08 00:18] VITALS: BP 128/90
[2017-12-08 04:15] VITALS: BP 170/97
[2017-12-08 07:31] VITALS: BP 141/91
[2017-12-08 11:44] VITALS: BP 108/63
[2017-12-08 16:02] VITALS: BP 148/104
[2017-12-08 19:44] VITALS: BP 113/74
[2017-12-09] VITALS: BP 124/87
[2017-12-09 04:00] VITALS: BP 134/96
[2017-12-09 06:21] LABS: CHLORIDE 100 MEQ/L (99-109); CREATINE KINASE 12 IU/L (1-294); CREATININE 0.6 MG/DL (0.6-1.3); GFR ESTIMATE (CALCULATED) > 59 mL/min/; GLUCOSE 121 mg/dL (70-99); POTASSIUM 4.1 MEQ/L (3.7-5.4); SODIUM 137 MEQ/L (136-147); UREA NITROGEN (BUN) 5 mg/dL (9-23)
[2017-12-09 08:17] VITALS: BP 121/60
[2017-12-09] MEDS ORDERED: AMLODIPINE BESY10 MG PO (11:50)
[2017-12-09] MEDS ORDERED: ZANAFLEX6 MG PO (11:52)
[2017-12-09] MEDS ORDERED: OXYCODONE HCL5 MG PO (11:52)
[2017-12-09 12:00] VITALS: BP 120/71
== END 2017-12-09 15:40 | disposition home or self-care (01) | DRG 95 ==
LOC: EME → EDBD 04:32 → EME 04:32 → 4EAST 09:24 → EDOF 09:24 → ENRESERV 09:29 → 4EAST 13:18 → ENRESERV 11-30 21:22 → CANRESERV 12-01 04:30 → ENRESERV 12-07 14:29 → 5SOUTH 12-07 16:45
PROVIDERS: Emergency Medicine; Family Medicine; Hospitalist; Internal Medicine; Psychiatry & Neurology Neurology
PROC: 009U3ZX Drainage of Spinal Canal, Percutaneous Approach, Diagnostic (ICD-10-PCS; principal; 2017-12-03)
DX: G61.0 Guillain-Barre syndrome (principal); N17.9 Acute kidney failure, unspecified; I16.0 Hypertensive urgency; I10 Essential (primary) hypertension; T50.1X5A Adverse effect of loop [high-ceiling] diuretics, initial encounter; M79.7 Fibromyalgia; G89.29 Other chronic pain; R11.2 Nausea with vomiting, unspecified; D52.9 Folate deficiency anemia, unspecified; E86.0 Dehydration; E86.1 Hypovolemia; E87.6 Hypokalemia; D86.9 Sarcoidosis, unspecified; J45.909 Unspecified asthma, uncomplicated; E11.9 Type 2 diabetes mellitus without complications; E78.5 Hyperlipidemia, unspecified; R31.29 Other microscopic hematuria; E66.9 Obesity, unspecified; Z68.31 Body mass index [BMI] 31.0-31.9, adult; F41.9 Anxiety disorder, unspecified; F17.210 Nicotine dependence, cigarettes, uncomplicated; Z71.6 Tobacco abuse counseling; Z91.81 History of falling
CPT/HCPCS: 62270; 70450; 70551; 71045; 72141; 76770; 77003; 80048; 80069; 81003; 82436; 82550; 82553; 82570; 82607; 82746; 82945; 83690; 83735; 84156; 84157; 84300; 84439; 84443; 84481; 85025; 85027; 85610; 85651; 86021 90; 86038; 86160; 86334; 86618; 86706; 86803; 87340; 89051; 89190; 93005; 93975; 94640; 94640 76; 97530 GO; 99202; 99281; 99285; J0360; J1566; J1885; J2405; J3475; J7030; J7050; Q0169

== ENCOUNTER 2017-12-17 17:36 | Emergency (ER) | payer OTHER ==
[~2017-12-17] VITALS: Ht 157.5 cm; Wt 71.5 kg
[~2017-12-17 17:36] MED LIST changes: +AMLODIPINE BESY10 MG PO; +CLONIDINE HCL0.2 MG PO; +OXYCODONE HCL5 MG PO
[2017-12-17 19:47] LABS: APPEARANCE SL.HAZY ((CLEAR)); BILIRUBIN NEGATIVE; BLOOD NEGATIVE; COLOR YELLOW ((YELLOW)); GLUCOSE (STRIP) NEGATIVE; KETONES 5; LEUKOCYTES TRACE; NITRITE NEGATIVE; PROTEIN (STRIP) 30; SPECIFIC GRAVITY 1.021 (1.000-1.030)
[2017-12-17 19:54] LABS: BACTERIA NONE SEEN /HPF; EPITHELIAL CELLS 1+ /HPF; HYALINE CASTS 0-5 /LPF; MUCUS 2+ /LPF; RED BLOOD CELLS 0-5 /HPF (0-5); UCUL ADDED? YES
[2017-12-17 21:40] VITALS: BP 144/74
[2017-12-17 22:12] LABS: FOLIC ACID (FOLATE) 6.5 NG/ML (5.0-22.0)
[2017-12-18 05:43] LABS: URINE TOTAL PROTEIN 49 MG/DL (0-10)
[2017-12-19 21:09] LABS: HCV RNA (IU/mL) <15 IU/mL (()); HCV RNA (LOG IU/mL) <1.18 (())
== END 2017-12-17 21:40 | disposition home or self-care (01) ==
LOC: EME 17:36
PROVIDERS: Physician Assistant
DX: G61.0 Guillain-Barre syndrome (principal); E11.9 Type 2 diabetes mellitus without complications; E78.5 Hyperlipidemia, unspecified; F32.9 Major depressive disorder, single episode, unspecified; Z86.73 Personal history of transient ischemic attack (TIA), and cerebral infarction without residual deficits; F41.9 Anxiety disorder, unspecified; K21.9 Gastro-esophageal reflux disease without esophagitis; J45.909 Unspecified asthma, uncomplicated; D86.9 Sarcoidosis, unspecified; I10 Essential (primary) hypertension; M79.7 Fibromyalgia; Z88.0 Allergy status to penicillin; Z88.2 Allergy status to sulfonamides; F17.200 Nicotine dependence, unspecified, uncomplicated
CPT/HCPCS: 81003; 82607; 82746; 84166; 85651; 86038; 86140; 86215 90; 87086; 87522 90; 99281; 99284

== ENCOUNTER 2018-01-22 20:39 | Emergency (ER) | payer OTHER ==
[~2018-01-22] VITALS: Ht 157.5 cm; Wt 79.3 kg
[2018-01-22 21:28] LABS: HEMATOCRIT 33.6 % (36.0-46.0); MCH 35.8 PG (29.0-34.0); MCHC 35.7 G/DL (30.0-36.0); MCV 100.3 FL (83-99); RBC DIS.WIDTH-CV 15.6 % (11.8-14.6); RBC DIS.WIDTH-SD 57.7 % (39-53); RED BLOOD COUNT 3.35 M/uL (3.80-5.20); WHITE BLOOD COUNT 13.4 K/uL (4.1-10.2)
[2018-01-22 21:44] LABS: CHLORIDE 100 mEq/L (99-109); POTASSIUM 3.6 mEq/L (3.7-5.4); SODIUM 141 mEq/L (136-147)
[2018-01-22 21:46] LABS: GLUCOSE 98 mg/dL (70-99)
[2018-01-22 21:50] LABS: CREATININE 0.7 mg/dL (0.6-1.3); GFR ESTIMATE (CALCULATED) > 59 mL/min/; TROP-I INTERPRETATION NEGATIVE; TROPONIN-I < 0.01 ng/mL (0.0-0.30)
[2018-01-22 21:51] LABS: UREA NITROGEN (BUN) 11 mg/dL (9-23)
[2018-01-22 22:06] LABS: ALBUMIN 4.4 g/dL (3.2-4.8)
[2018-01-22 22:08] LABS: TOTAL PROTEIN 7.4 g/dL (6.4-8.3)
[2018-01-22 22:10] LABS: PLAT.SUFFICIENCY ADEQUATE; PLATELET COUNT 349 K/uL (156-360); TOTAL BILIRUBIN 0.4 mg/dL (0.0-1.0)
[2018-01-22 22:11] LABS: ALKALINE PHOSPHATASE 76 IU/L (3-129)
[2018-01-22 22:14] LABS: ALT (GPT) 35 IU/L (3-49); AST (GOT) 25 IU/L (2-34); DIRECT BILIRUBIN 0.2 mg/dL (0.0-0.3)
[2018-01-22 22:35] LABS: SERUM ETHYL ALCOHOL 138 mg/dL
[2018-01-23] MEDS ORDERED: FUROSEMIDE20 MG PO (00:51)
[2018-01-23 02:05] VITALS: BP 185/104
== END 2018-01-23 02:05 | disposition home or self-care (01) ==
LOC: EME 20:39
DX: I10 Essential (primary) hypertension (principal); R60.0 Localized edema; F10.129 Alcohol abuse with intoxication, unspecified; Y90.6 Blood alcohol level of 120-199 mg/100 ml; R07.9 Chest pain, unspecified; D86.9 Sarcoidosis, unspecified; J45.909 Unspecified asthma, uncomplicated; E11.9 Type 2 diabetes mellitus without complications; M79.7 Fibromyalgia; K21.9 Gastro-esophageal reflux disease without esophagitis; F31.9 Bipolar disorder, unspecified; F41.9 Anxiety disorder, unspecified; F32.9 Major depressive disorder, single episode, unspecified; F17.200 Nicotine dependence, unspecified, uncomplicated; Z86.73 Personal history of transient ischemic attack (TIA), and cerebral infarction without residual deficits; Z90.49 Acquired absence of other specified parts of digestive tract; Z88.0 Allergy status to penicillin; Z88.2 Allergy status to sulfonamides
CPT/HCPCS: 71046; 80048; 80076; 83880; 84484; 85027; 93005; 99281; 99285; G0480; J0360; J1940